=== PATIENT | male | born 1960 | race Caucasian/White ===

== ENCOUNTER 2017-08-14 20:54 | Emergency (ER) | payer OTHER ==
[2017-08-14 21:47] VITALS: BP 169/92
--- NOTE | 2017-08-14 22:09 | EDM.PDOC ---
ED HPI GENERAL MEDICAL PROBLEM - General Chief Complaint: Gastrointestinal Problem Stated Complaint: FOOD LODGED IN THROAT Time Seen by Provider: 08/14/17 22:06 Source of Information: Reports: Patient History Limitations: Reports: No Limitations - History of Present Illness INITIAL COMMENTS - FREE TEXT/NARRATIVE: pt was eating chicken tonight and it got caught in his esophagus and from 6 thirty this pm until now hje was not able to get water down. Onset: Today, Sudden Duration: Hour(s): Location: Reports: Abdomen Associated Symptoms: Reports: Weakness - Related Data Allergies Allergy/AdvReac Type Severity Reaction Status Date / Time No Known Allergies Allergy Verified 08/14/17 21:44 Home Meds: Home Meds Pravastatin [Pravachol] 20 mg PO BEDTIME 01/06/13 [History] Sildenafil [Viagra] 50 mg PO BEDTIME PRN 01/06/13 [History] Famotidine 1 tab PO BID 08/14/17 [History] Past Medical History Cardiovascular History: Reports: High Cholesterol Gastrointestinal History: Reports: Colon Polyp, Diverticulosis - Past Surgical History GI Surgical History: Reports: Appendectomy, Colonoscopy Musculoskeletal Surgical History: Reports: Arthroscopic Knee Social & Family History - Tobacco Use Smoking Status *Q: Never Smoker - Caffeine Use Caffeine Use: Reports: Tea - Alcohol Use Days Per Week of Alcohol Use: 7 Number of Drinks Per Day: 1 Total Drinks Per Week: 7 - Recreational Drug Use Recreational Drug Use: No ED ROS GENERAL - Review of Systems Review Of Systems: See Below Constitutional: Reports: No Symptoms HEENT: Reports: No Symptoms Respiratory: Reports: No Symptoms Cardiovascular: Reports: No Symptoms Endocrine: Reports: No Symptoms GI/Abdominal: Reports: Other ( food caught in his esophagus. ) : Reports: No Symptoms Musculoskeletal: Reports: No Symptoms Skin: Reports: No Symptoms Neurological: Reports: No Symptoms ED EXAM, GI/ABD - Physical Exam Exam: See Below Text/Narrative:: pt arrived feeling like he has a piece of chicken caught in his esophagus. He has not been able to get water down since 6 thirty. He was given a can of coke and he felt like he was able to get fluids down and he did not feel like it was coming back up. Exam Limited By: No Limitations General Appearance: Alert, Anxious, Moderate Distress Eyes: Bilateral: Normal Appearance, EOMI Ears: Normal TMs Nose: Normal Inspection Throat/Mouth: Normal Inspection GI/Abdominal Exam: Other ( no tenderness) Rectal (Males) Exam: Deferred Extremities: Normal Inspection Neurological: Alert, Oriented, Normal Cognition Psychiatric: Normal Affect Course - Vital Signs Last Recorded V/S: Last Vital Signs Temp 35.9 C 08/14/17 21:46 Pulse 74 08/14/17 21:46 Resp 18 08/14/17 21:46 BP 169/92 H 08/14/17 21:46 Pulse Ox 97 08/14/17 21:46 - Orders/Labs/Meds Orders: Active Orders 24 hr Category Date Time Status CBC WITH AUTO DIFF [HEME] Urgent Lab 08/14/17 21:46 Ordered COMPREHENSIVE METABOLIC PN,CMP [CHEM] Urgent Lab 08/14/17 21:46 Ordered CRP [C-REACTIVE PROTEIN] [CHEM] Stat Lab 08/14/17 21:46 Ordered UA W/MICROSCOPIC [URIN] Urgent Lab 08/14/17 21:46 Ordered - Re-Assessments/Exams Free Text/Narrative Re-Assessment/Exam: 08/14/17 22:13 pt was given a coke and the chicken went down.He hjas had several episodes in the past few days and he was advised if this persisted he should be gastroscoped. Departure - Departure Time of Disposition: 22:08 Disposition: Home, Self-Care 01 Condition: Fair Clinical Impression: Foreign body in esophagus - Discharge Information Referrals: Forest Goode MD [Primary Care Provider] - Forms: ED Department Discharge Care Plan Goals: cleared after a can of coke, rtc if problems. - My Orders Last 24 Hours: My Active Orders 08/14/17 21:46 CBC WITH AUTO DIFF [HEME] Urgent COMPREHENSIVE METABOLIC PN,CMP [CHEM] Urgent CRP [C-REACTIVE PROTEIN] [CHEM] Stat UA W/MICROSCOPIC [URIN] Urgent - Assessment/Plan Last 24 Hours: My Active Orders 08/14/17 21:46 CBC WITH AUTO DIFF [HEME] Urgent COMPREHENSIVE METABOLIC PN,CMP [CHEM] Urgent CRP [C-REACTIVE PROTEIN] [CHEM] Stat UA W/MICROSCOPIC [URIN] Urgent
== END 2017-08-14 22:17 | disposition home or self-care (01) ==
LOC: JP.ED 20:54
DX: T18.128A Food in esophagus causing other injury, initial encounter (principal); E78.00 Pure hypercholesterolemia, unspecified
CPT/HCPCS: 99285

== ENCOUNTER 2018-07-11 18:42 | Inpatient (IN) | payer OTHER ==
[2018-07-11] MEDS ORDERED: Acetaminophen 500 MG Tab PO ONE (19:08)
--- NOTE | 2018-07-11 19:14 | EDM.PDOC ---
ED HPI GENERAL MEDICAL PROBLEM - General Chief Complaint: Abdominal Pain Stated Complaint: DIVERTICULITIS Time Seen by Provider: 07/11/18 19:00 Source of Information: Reports: Patient History Limitations: Reports: No Limitations - History of Present Illness INITIAL COMMENTS - FREE TEXT/NARRATIVE: 58 yo male with a pHx of diverticulitis began with mild abdominal pain this morning that has progressed that reminds him of his previous diverticulitis. Ate some for lunch that made him worse. Late this afternoon developed a low grade fever that he did not treat. Pain is in the low abdomen just above the belt line. He developed nausea after his chicken noodle soup for lunch, does not have any now. Got slight relief with Gas X. Onset: Today Onset Date: 07/11/18 Onset Time: 09:00 Duration: Hour(s):, Getting Worse Location: Reports: Abdomen Quality: Reports: Ache Severity: Moderate Improves with: Reports: Other (passing gas, Gas X) Worsens with: Reports: Eating, Other (time) Context: Reports: Other (See HPI) Associated Symptoms: Reports: Fever/Chills, Nausea/Vomiting. 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 (see below) (Gas X) - Related Data Allergies Allergy/AdvReac Type Severity Reaction Status Date / Time No Known Allergies Allergy Verified 07/11/18 19:17 Home Meds: Home Meds Pravastatin [Pravachol] 20 mg PO BEDTIME 01/06/13 [History] Sildenafil [Viagra] 50 mg PO BEDTIME PRN 01/06/13 [History] Omeprazole 1 tab PO BEDTIME 07/11/18 [History] Past Medical History Cardiovascular History: Reports: High Cholesterol Gastrointestinal History: Reports: Colon Polyp, Diverticulosis - Past Surgical History GI Surgical History: Reports: Appendectomy, Colonoscopy Musculoskeletal Surgical History: Reports: Arthroscopic Knee Social & Family History - Caffeine Use Caffeine Use: Reports: Tea ED ROS GENERAL - Review of Systems Review Of Systems: See Below Constitutional: Reports: No Symptoms HEENT: Reports: No Symptoms Respiratory: Reports: No Symptoms Cardiovascular: Reports: No Symptoms GI/Abdominal: Reports: Abdominal Pain, Decreased Appetite, Nausea (not now), Vomiting (one small after lunch). Denies: Anorexia, Black Stool, Bloody Stool, Constipation, Diarrhea, Distension, Flatus, Hematemesis, Melena : Reports: No Symptoms Musculoskeletal: Reports: No Symptoms Skin: Reports: No Symptoms Neurological: Reports: No Symptoms ED EXAM, GI/ABD - Physical Exam Exam: See Below Exam Limited By: No Limitations General Appearance: Alert, WD/WN, No Apparent Distress Eyes: Bilateral: Normal Appearance Ears: Normal External Exam, Normal Canal, Hearing Grossly Normal Nose: Normal Inspection, No Blood Throat/Mouth: Normal Inspection, Normal Lips, Normal Oropharynx, Normal Voice, No Airway Compromise Head: Atraumatic, Normocephalic Neck: Normal Inspection Respiratory/Chest: No Respiratory Distress, Lungs Clear, Normal Breath Sounds, No Accessory Muscle Use Cardiovascular: Regular Rate, Rhythm, No Edema GI/Abdominal Exam: Normal Bowel Sounds, Soft, No Distention, Tender (more so in the LLQ). No: Non-Tender, No Mass, Distended, Guarding, Rigid, Rebound, Hernia Back Exam: Normal Inspection. No: CVA Tenderness (R), CVA Tenderness (L) Extremities: Normal Inspection, Normal Range of Motion, Non-Tender, No Pedal Edema Neurological: Alert, Oriented, CN II-XII Intact, Normal Cognition, No Motor/ Sensory Deficits Psychiatric: Normal Affect, Normal Mood Skin Exam: Warm, Dry, Intact, Normal Color, No Rash Course - Vital Signs Text/Narrative:: Dr. Johnson called @ Last Recorded V/S: Last Vital Signs Temp 37.9 C 07/11/18 19:24 Pulse 110 H 07/11/18 19:24 Resp 16 07/11/18 19:24 BP 150/89 H 07/11/18 19:24 Pulse Ox 92 L 07/11/18 19:24 - Orders/Labs/Meds Orders: Active Orders 24 hr Category Date Time Status Ciprofloxacin in D5W [Cipro in D5W 400 MG/200 ML] 400 Med 07/11/18 21:18 Active mg Premix Bag 1 bag IV ONETIME Lactated Ringers [Ringers, Lactated] 1,000 ml Med 07/11/18 19:15 Active IV ASDIRECTED metroNIDAZOLE/Normal Saline [Flagyl 500 MG in NS 100 ML Med 07/11/18 21:18 Active ] 500 mg Premix Bag 1 bag IV ONETIME Medication Orders Lactated Ringer's (Ringers, Lactated) 1,000 mls @ 500 mls/hr IV ASDIRECTED KRISTIN Last Admin: 07/11/18 20:49 Dose: 500 mls/hr Ciprofloxacin/Dextrose 400 mg/ (Premix) 200 mls @ 200 mls/hr IV ONETIME ONE Stop: 07/11/18 22:17 Metronidazole 500 mg/ Premix 100 mls @ 100 mls/hr IV ONETIME ONE Stop: 07/11/18 22:17 Labs: Laboratory Tests 07/11/18 07/11/18 07/11/18 Range/Units 19:07 19:18 19:18 WBC 15.9 H (4.5-11.0) K/uL RBC 4.63 (4.30-5.90) M/uL Hgb 13.7 (12.0-15.0) g/dL Hct 40.1 (40.0-54.0) % MCV 87 (80-98) fL MCH 30 (27-31) pg MCHC 34 (32-36) % Plt Count 273 (150-400) K/uL Sodium 134 L (140-148) mmol/L Potassium 4.0 (3.6-5.2) mmol/L Chloride 98 L (100-108) mmol/L Carbon Dioxide 24 (21-32) mmol/L Anion Gap 16.0 H (5.0-14.0) mmol/L BUN 11 (7-18) mg/dL Creatinine 1.1 (0.8-1.3) mg/dL Est Cr Clr Drug Dosing 65.61 mL/min Estimated GFR (MDRD) > 60 (>60) Glucose 143 H (74-106) mg/dL Calcium 9.1 D (8.5-10.1) mg/dL C-Reactive Protein (0.0-0.3) mg/dL Urine Color Yellow Urine Appearance Clear Urine pH 6.0 (4.5-8.0) Ur Specific [place] 1.010 (1.008-1.030) Urine Protein Negative (NEGATIVE) mg/dL Urine Glucose (UA) Normal (NEGATIVE) mg/dL Urine Ketones Negative (NEGATIVE) mg/dL Urine Occult Blood Negative (NEGATIVE) Urine Nitrite Negative (NEGAITVE) Urine Bilirubin Negative (NEGATIVE) Urine Urobilinogen Normal (NORMAL) mg/dL Ur Leukocyte Esterase Negative (NEGATIVE) Urine RBC Not seen (0-5) Urine WBC Not seen (0-5) Ur Epithelial Cells Not seen Amorphous Sediment Not seen Urine Bacteria Not seen Urine Mucus Not seen 07/11/18 Range/Units 19:18 WBC (4.5-11.0) K/uL RBC (4.30-5.90) M/uL Hgb (12.0-15.0) g/dL Hct (40.0-54.0) % MCV (80-98) fL MCH (27-31) pg MCHC (32-36) % Plt Count (150-400) K/uL Sodium (140-148) mmol/L Potassium (3.6-5.2) mmol/L Chloride (100-108) mmol/L Carbon Dioxide (21-32) mmol/L Anion Gap (5.0-14.0) mmol/L BUN (7-18) mg/dL Creatinine (0.8-1.3) mg/dL Est Cr Clr Drug Dosing mL/min Estimated GFR (MDRD) (>60) Glucose (74-106) mg/dL Calcium (8.5-10.1) mg/dL C-Reactive Protein 4.21 H (0.0-0.3) mg/dL Urine Color Urine Appearance Urine pH (4.5-8.0) Ur Specific [place] (1.008-1.030) Urine Protein (NEGATIVE) mg/dL Urine Glucose (UA) (NEGATIVE) mg/dL Urine Ketones (NEGATIVE) mg/dL Urine Occult Blood (NEGATIVE) Urine Nitrite (NEGAITVE) Urine Bilirubin (NEGATIVE) Urine Urobilinogen (NORMAL) mg/dL Ur Leukocyte Esterase (NEGATIVE) Urine RBC (0-5) Urine WBC (0-5) Ur Epithelial Cells Amorphous Sediment Urine Bacteria Urine Mucus Meds: Medications Generic Name Dose Route Start Last Admin Trade Name Freq PRN Reason Stop Dose Admin Lactated Ringer's 1,000 mls @ 500 mls/hr 07/11/18 19:15 07/11/18 20:49 Ringers, Lactated IV 500 mls/hr ASDIRECTED KRISTIN Administration Ciprofloxacin/Dextrose 400 mg/ 200 mls @ 200 mls/hr 07/11/18 21:18 Premix IV 07/11/18 22:17 ONETIME ONE Metronidazole 500 mg/ Premix 100 mls @ 100 mls/hr 07/11/18 21:18 IV 07/11/18 22:17 ONETIME ONE Discontinued Medications Generic Name Dose Route Start Last Admin Trade Name Vasile PRN Reason Stop Dose Admin Acetaminophen 1,000 mg 07/11/18 19:08 07/11/18 20:45 Tylenol Extra Strength PO 07/11/18 19:09 1,000 mg ONETIME ONE Administration Sodium Chloride 100 mls @ 3 mls/sec 07/11/18 20:13 07/11/18 20:30 Normal Saline IV 07/11/18 20:14 3 mls/sec ONETIME ONE Administration Iopamidol 150 ml 07/11/18 20:15 07/11/18 20:31 Isovue-300 (61%) IV 150 ml . DIRECTED KRISTIN Administration - Radiology Interpretation Free Text/Narrative:: CT abdom/pelvis with IV contrast-acute sigmoid diverticulitis with ? early abscess formation CT Results Date: 07/11/18 CT Results Time: 21:15 Departure - Departure Time of Disposition: 21:45 Disposition: Admitted As Inpatient 64 Condition: Fair Clinical Impression: Acute diverticulitis - Discharge Information *PRESCRIPTION DRUG MONITORING PROGRAM REVIEWED*: No *COPY OF PRESCRIPTION DRUG MONITORING REPORT IN PATIENT ERICKA: No Referrals: Forest Goode MD [Primary Care Provider] - Forms: ED Department Discharge - My Orders Last 24 Hours: My Active Orders 07/11/18 19:15 Lactated Ringers [Ringers, Lactated] 1,000 ml IV ASDIRECTED 07/11/18 21:18 Ciprofloxacin in D5W [Cipro in D5W 400 MG/200 ML] 400 mg Premix Bag 1 bag IV ONETIME metroNIDAZOLE/Normal Saline [Flagyl 500 MG in NS 100 ML] 500 mg Premix Bag 1 bag IV ONETIME - Assessment/Plan Last 24 Hours: My Active Orders 07/11/18 19:15 Lactated Ringers [Ringers, Lactated] 1,000 ml IV ASDIRECTED 07/11/18 21:18 Ciprofloxacin in D5W [Cipro in D5W 400 MG/200 ML] 400 mg Premix Bag 1 bag IV ONETIME metroNIDAZOLE/Normal Saline [Flagyl 500 MG in NS 100 ML] 500 mg Premix Bag 1 bag IV ONETIME
[2018-07-11] MEDS ORDERED: Lactated Ringers 1,000 ML IV SCH (19:15)
[2018-07-11] MEDS ORDERED: Sodium Chloride 0.9% 100 ML IV ONE (20:13)
[2018-07-11] MEDS ORDERED: Iopamidol 612 MG/ML 150 ML Bottle IV SCH (20:15)
--- NOTE | 2018-07-11 21:12 | CRLCT ---
INDICATION: Abdominal pain TECHNIQUE: CT abdomen and pelvis acquired with 150 cc Isovue 300 IV contrast. COMPARISON: None FINDINGS: Lower chest: Small hiatal hernia. Liver: Unremarkable. Spleen: Unremarkable. Pancreas: Unremarkable. Gallbladder and bile ducts: Unremarkable. Adrenal glands: Unremarkable. Kidneys: Simple cyst superior pole left kidney. GI tract: Sigmoid diverticulosis. Short segment of colonic wall thickening in the proximal sigmoid colon with pericolonic fat stranding. No extraluminal air. There is a 2.0 x 1.4 cm focal fluid collection along the inferior wall of the sigmoid colon, best seen on image 45 series 3. Vascular structures: Unremarkable. Lymph nodes: Unremarkable. Pelvic Organs: Mild enhancement of the left lateral wall of the urinary bladder, likely reactive. Bones: Grade 1 anterolisthesis of L5 on S1 secondary to bilateral L5 pars defects. Osseous structures are otherwise unremarkable for age. IMPRESSION: Acute sigmoid diverticulitis. Small fluid collection may represent early abscess formation. Small hiatal hernia. Please note that all CT scans at this facility use dose modulation, iterative reconstruction, and/or weight-based dosing when appropriate to reduce radiation dose to as low as reasonably achievable. Dictated by Carmen Looney MD @ Jul 11 2018 8:50PM Signed by Dr. Carmen Looney @ Jul 11 2018 9:11PM
[2018-07-11] MEDS ORDERED: Ciprofloxacin in D5W 400 MG in Premix Bag 1 BAG IV ONE ×2 (21:18)
[2018-07-11] MEDS ORDERED: metroNIDAZOLE/Normal Saline 500 MG in Premix Bag 1 BAG IV ONE (21:18)
--- NOTE | 2018-07-11 21:48 | PCM.HP ---
H&P History of Present Illness - General Date of Service: 07/11/18 Admit Problem/Dx: Admission Diagnosis/Problem Admission Diagnosis/Problem Diverticulitis Source of Information: Patient, Family, Old Records, Provider, RN Notes Reviewed History Limitations: Reports: No Limitations - History of Present Illness Initial Comments - Free Text/Narative: Mr. Long is a 58-year-old gentleman who was admitted through the emergency department with left lower quadrant abdominal pain, chills, nausea and vomiting , secondary to complicated diverticulitis with abscess formation. He has a known history of diverticulosis and one previous episode of diverticulitis occurring in 2012. He felt well until early this morning when he awoke with left lower quadrant abdominal pain. Pain persisted throughout the day, worse with movement. He denies any radiation of the pain and describes it as a moderate ache. The evening he had some chicken noodle soup and after about an hour experience nausea and vomiting. He presented to the emergency department for further evaluation. White blood cell count is elevated and he was found to have left lower quadrant tenderness on examination. CT scan of the abdomen shows evidence of diverticulitis with probable abscess formation 2.01.4 cm in size. He is been started on IV antibiotic therapy with ciprofloxacin and metronidazole in the emergency department. - Related Data Allergies/Adverse Reactions: Allergies Allergy/AdvReac Type Severity Reaction Status Date / Time No Known Allergies Allergy Verified 07/11/18 19:17 Home Medications: Home Meds Pravastatin [Pravachol] 20 mg PO BEDTIME 01/06/13 [History] Sildenafil [Viagra] 50 mg PO BEDTIME PRN 01/06/13 [History] Fish Oil/Brick-3 Fatty Acids [Fish Oil 1,000 MG] 1 each PO BID 07/11/18 [History ] Omeprazole 1 tab PO BEDTIME 07/11/18 [History] Past Medical History Cardiovascular History: Reports: High Cholesterol Gastrointestinal History: Reports: Colon Polyp, Diverticulosis - Past Surgical History GI Surgical History: Reports: Appendectomy, Colonoscopy Musculoskeletal Surgical History: Reports: Arthroscopic Knee Social & Family History - Tobacco Use Smoking Status *Q: Never Smoker - Caffeine Use Caffeine Use: Reports: Tea H&P Review of Systems - Review of Systems: Review Of Systems: See Below General: Reports: Chills, Weakness, Fatigue, Decreased Appetite. Denies: Fever HEENT: Reports: No Symptoms Pulmonary: Reports: No Symptoms Cardiovascular: Reports: No Symptoms Gastrointestinal: Reports: Abdominal Pain, Decreased Appetite, Distension, Nausea, Vomiting. Denies: Constipation, Diarrhea, Difficulty Swallowing, Hematemesis, Hematochezia, Melena Genitourinary: Reports: No Symptoms Musculoskeletal: Reports: No Symptoms Skin: Reports: No Symptoms Psychiatric: Reports: No Symptoms Neurological: Reports: No Symptoms Hematologic/Lymphatic: Reports: No Symptoms Immunologic: Reports: No Symptoms Exam - Exam Exam: See Below - Vital Signs Vital Signs: Last Vital Signs Temp 100.2 F 07/11/18 19:24 Pulse 110 H 07/11/18 19:24 Resp 16 07/11/18 19:24 BP 150/89 H 07/11/18 19:24 Pulse Ox 92 L 07/11/18 19:24 Weight: 215 lb 9.793 oz - Exam Quality Assessment: Supplemental Oxygen, DVT Prophylaxis General: Alert, Oriented, Cooperative, Moderate Distress HEENT: Conjunctiva Clear, Hearing Intact, Mucosa Moist & [place], Normal Nasal Septum, Posterior Pharynx Clear, Pupils Equal Neck: Supple, Trachea Midline, +2 Carotid Pulse wo Bruit Lungs: Clear to Auscultation, Normal Respiratory Effort Cardiovascular: Regular Rate, Regular Rhythm, Normal S1, Normal S2. No: Systolic Murmur, Diastolic Murmur GI/Abdominal Exam: Soft, No Organomegaly, Distended, Guarding, Rebound, Tender. No: Rigid Back Exam: Normal Inspection, Full Range of Motion Extremities: Non-Tender, No Pedal Edema Skin: Warm, Dry, Intact Neurological: Cranial Nerves Intact, Strength Equal Bilateral, Normal Speech, Normal Tone, Sensation Intact. No: Focal Deficit Neuro Extensive - Mental Status: Alert, Oriented x3, Normal Mood/Affect, Normal Cognition, Memory Intact - Patient Data Lab Results Last 24 hrs: Laboratory Results - last 24 hr 07/11/18 07/11/18 07/11/18 Range/Units 19:07 19:18 19:18 WBC 15.9 H (4.5-11.0) K/uL RBC 4.63 (4.30-5.90) M/uL Hgb 13.7 (12.0-15.0) g/dL Hct 40.1 (40.0-54.0) % MCV 87 (80-98) fL MCH 30 (27-31) pg MCHC 34 (32-36) % Plt Count 273 (150-400) K/uL Sodium 134 L (140-148) mmol/L Potassium 4.0 (3.6-5.2) mmol/L Chloride 98 L (100-108) mmol/L Carbon Dioxide 24 (21-32) mmol/L Anion Gap 16.0 H (5.0-14.0) mmol/L BUN 11 (7-18) mg/dL Creatinine 1.1 (0.8-1.3) mg/dL Est Cr Clr Drug Dosing 65.61 mL/min Estimated GFR (MDRD) > 60 (>60) Glucose 143 H (74-106) mg/dL Calcium 9.1 D (8.5-10.1) mg/dL C-Reactive Protein (0.0-0.3) mg/dL Urine Color Yellow Urine Appearance Clear Urine pH 6.0 (4.5-8.0) Ur Specific [place] 1.010 (1.008-1.030) Urine Protein Negative (NEGATIVE) mg/dL Urine Glucose (UA) Normal (NEGATIVE) mg/dL Urine Ketones Negative (NEGATIVE) mg/dL Urine Occult Blood Negative (NEGATIVE) Urine Nitrite Negative (NEGAITVE) Urine Bilirubin Negative (NEGATIVE) Urine Urobilinogen Normal (NORMAL) mg/dL Ur Leukocyte Esterase Negative (NEGATIVE) Urine RBC Not seen (0-5) Urine WBC Not seen (0-5) Ur Epithelial Cells Not seen Amorphous Sediment Not seen Urine Bacteria Not seen Urine Mucus Not seen 07/11/18 Range/Units 19:18 WBC (4.5-11.0) K/uL RBC (4.30-5.90) M/uL Hgb (12.0-15.0) g/dL Hct (40.0-54.0) % MCV (80-98) fL MCH (27-31) pg MCHC (32-36) % Plt Count (150-400) K/uL Sodium (140-148) mmol/L Potassium (3.6-5.2) mmol/L Chloride (100-108) mmol/L Carbon Dioxide (21-32) mmol/L Anion Gap (5.0-14.0) mmol/L BUN (7-18) mg/dL Creatinine (0.8-1.3) mg/dL Est Cr Clr Drug Dosing mL/min Estimated GFR (MDRD) (>60) Glucose (74-106) mg/dL Calcium (8.5-10.1) mg/dL C-Reactive Protein 4.21 H (0.0-0.3) mg/dL Urine Color Urine Appearance Urine pH (4.5-8.0) Ur Specific [place] (1.008-1.030) Urine Protein (NEGATIVE) mg/dL Urine Glucose (UA) (NEGATIVE) mg/dL Urine Ketones (NEGATIVE) mg/dL Urine Occult Blood (NEGATIVE) Urine Nitrite (NEGAITVE) Urine Bilirubin (NEGATIVE) Urine Urobilinogen (NORMAL) mg/dL Ur Leukocyte Esterase (NEGATIVE) Urine RBC (0-5) Urine WBC (0-5) Ur Epithelial Cells Amorphous Sediment Urine Bacteria Urine Mucus Result Diagrams: 07/11/18 19:18 07/11/18 19:18 *Q Meaningful Use (ADM) - VTE *Q VTE Pharmacological Contraindications *Q: Patient Scheduled Surgery - VTE Risk Assess *Q Each Risk Factor Represents 1 Point: Obesity ( BMI > 25 kg/m2) Total Score 1 Point Risk Factors: 1 Each Risk Factor Represents 2 Points: Age 60 - 74 Years Total Score 2 Point Risk Factors: 2 Each Risk Factor Represents 3 Points: None Total Score 3 Point Risk Factors: 0 Each Risk Factor Represents 5 Points: None Total Score 5 Point Risk Factors: 0 Venous Thromboembolism Risk Factor Score *Q: 3 Problem List Initiated/Reviewed/Updated: Yes Orders Last 24hrs: Active Orders 24 hr Category Date Time Status Patient Status Manage Transfer [TRANSFER] Routine ADT 07/11/18 21:33 Active Ciprofloxacin in D5W [Cipro in D5W 400 MG/200 ML] 400 Med 07/11/18 21:18 Active mg Premix Bag 1 bag IV ONETIME Lactated Ringers [Ringers, Lactated] 1,000 ml Med 07/11/18 19:15 Active IV ASDIRECTED metroNIDAZOLE/Normal Saline [Flagyl 500 MG in NS 100 ML Med 07/11/18 21:18 Active ] 500 mg Premix Bag 1 bag IV ONETIME Resuscitation Status Routine Resus Stat 07/11/18 21:38 Ordered Medication Orders Lactated Ringer's (Ringers, Lactated) 1,000 mls @ 500 mls/hr IV ASDIRECTED KRISTIN Last Admin: 07/11/18 20:49 Dose: 500 mls/hr Ciprofloxacin/Dextrose 400 mg/ (Premix) 200 mls @ 200 mls/hr IV ONETIME ONE Stop: 07/11/18 22:17 Last Admin: 07/11/18 21:45 Dose: 200 mls/hr Metronidazole 500 mg/ Premix 100 mls @ 100 mls/hr IV ONETIME ONE Stop: 07/11/18 22:17 Last Admin: 07/11/18 21:45 Dose: 100 mls/hr Assessment/Plan Comment:: ASSESSMENT AND PLAN COMPLICATED DIVERTICULITIS WITH ABSCESS-known history of diverticulosis, this is his second episode of diverticulitis. White blood cell count elevated and CT scan shows evidence of diverticulitis with abscess formation. He is otherwise fairly healthy no history of significant cardiac or pulmonary disease. Cleared for surgery if indicated with general anesthetic. -Nothing by mouth -IV fluids for hydration -Pain and nausea medication as needed -IV ciprofloxacin and metronidazole -Consult Dr. Arthur for surgical opinion in a.m. MAINTENANCE ISSUES -DVT prophylaxis; SCUDS -GI prophylaxis; Protonix 40 mg IV daily -Mares catheter; not indicated -Nutrition; nothing by mouth -Nicotine dependence; not required CODE STATUS-FULL CODE ADMISSION STATUS-patient will be admitted to inpatient status, expect at least a 2 night hospital stay for evaluation and management of problems as outlined above. At the time of this admission I do not reasonably expected evaluation and management of this problem will require more than a 96 hour hospital stay. DISPOSITION-anticipate discharge to home after the hospital stay. PRIMARY CARE PROVIDER-Dr. Forest Goode
[2018-07-11] MEDS ORDERED: Sodium Chloride 0.9% 10 ML Syringe FLUSH PRN (22:07)
[2018-07-11] MEDS ORDERED: metroNIDAZOLE/Normal Saline 500 MG in Premix Bag 1 BAG IV SCH (22:07)
[2018-07-11] MEDS ORDERED: Pantoprazole 40 MG Vial IVPUSH SCH (22:07)
[2018-07-11] MEDS ORDERED: HYDROmorphone 0.5 MG/0.5 ML Syringe IVPUSH PRN (22:07)
[2018-07-11] MEDS: Ciprofloxacin in D5W 400 MG in Premix Bag 1 BAG IV SCH ×4 (22:19→22:20)
[2018-07-11] MEDS: Lactated Ringers 1,000 ML IV SCH (22:46)
[2018-07-12] MEDS: Acetaminophen 325 MG Tab PO PRN ×2 (00:30→05:05)
[2018-07-12] MEDS: metroNIDAZOLE/Normal Saline 500 MG in Premix Bag 1 BAG IV SCH ×3 (05:07→22:30)
[2018-07-12] MEDS: Lactated Ringers 1,000 ML IV SCH (05:10)
[2018-07-12] MEDS ORDERED: Ketamine 500 MG/5 ML MDV IV SCH ×3 (07:30→12:00)
--- NOTE | 2018-07-12 08:36 | PN ---
DATE OF SERVICE: 07/12/2018 SUBJECTIVE: Mike has acute diverticulitis. His CT scan shows sigmoid diverticulosis with short segment of colonic wall thickening in the proximal sigmoid colon. There is a 2.0 x 1.4 cm focal fluid collection along the inferior wall of the sigmoid colon. He is n.p.o. and will be scheduled for surgery today. Reports temperature max over the past 24 hours was 99.6. Vital signs otherwise have been stable. He reports pain between on a pain scale of 1- 10 between 4-6. He is taking oral Tylenol and he received 3 doses during the night. REVIEW OF SYSTEMS: Remainder of review of systems negative for any pertinent positives and negatives. OBJECTIVE: GENERAL: Mike Long is a 58-year-old male. VITAL SIGNS: TPR is 98.7, 70, 18, blood pressure is 136/77. HEENT: Negative. NECK: Supple. HEART: Regular rate and rhythm. LUNGS: Clear. ABDOMEN: Slight distention. There is generalized tenderness with increased tenderness in the right lower quadrant. EXTREMITIES: Without peripheral edema. NEUROLOGIC: Intact. SKIN: Without rash. PSYCHIATRIC: Mood and affect appropriate. ASSESSMENT: Diverticulitis, pericolonic abscess. PLAN: Schedule and have consent signed for open laparotomy with sigmoid resection and drainage of pericolonic abscess. Case to follow. General anesthesia, TAP block, ketamine bolus and intraoperative ketamine. N.p.o. Surgeon, Mike Arthur MD. After preoperative evaluation and discussion of possible risks and possible complications by Mike Arthur MD, the patient wishes to proceed with surgical procedure. Ema Mac PA-C /[id number]
[2018-07-12] MEDS ORDERED: fentaNYL 250 MCG/5 ML SDV ONE (08:44)
[2018-07-12] MEDS ORDERED: Propofol 200 MG/20 ML SDV ONE (08:45)
[2018-07-12] MEDS ORDERED: Neostigmine Methylsulfate 1 MG/ML 5 ML Syringe ONE (08:45)
[2018-07-12] MEDS ORDERED: Rocuronium 50 MG/5 ML Vial ONE ×2 (08:45→13:02)
[2018-07-12] MEDS ORDERED: Succinylcholine 200 MG/10 ML MDV ONE (08:45)
[2018-07-12] MEDS ORDERED: Glycopyrrolate 0.2 MG/ML 5 ML MDV ONE (08:45)
[2018-07-12] MEDS ORDERED: Ondansetron 4 MG/2 ML SDV ONE (08:45)
[2018-07-12] MEDS ORDERED: Dexamethasone 4 MG/ML SDV ONE (08:45)
[2018-07-12] MEDS: Ciprofloxacin in D5W 400 MG in Premix Bag 1 BAG IV SCH ×4 (09:13→21:28)
[2018-07-12] MEDS ORDERED: Meropenem 500 MG SDV ONE ×2 (10:41→13:02)
--- NOTE | 2018-07-12 10:41 | PCM.PN ---
- General Info Date of Service: 07/12/18 Subjective Update: No acute events overnight following admission. Pain is better today but not resolved. Did have some low-grade fevers overnight. Surgery is planned later this morning. Functional Status: Reports: Pain Controlled - Review of Systems Gastrointestinal: Reports: Abdominal Pain - Patient Data Vitals - Most Recent: Last Vital Signs Temp 37.1 C 07/12/18 07:33 Pulse 70 07/12/18 07:33 Resp 18 07/12/18 07:33 BP 136/77 07/12/18 07:33 Pulse Ox 93 L 07/12/18 07:33 Weight - Most Recent: 96.729 kg I&O - Last 24 Hours: Intake & Output 07/11/18 07/12/18 07/12/18 22:59 06:59 14:59 Intake Total 1226 Output Total 950 Balance -950 1226 Lab Results Last 24 Hours: Laboratory Results - last 24 hr 07/11/18 07/11/18 07/11/18 Range/Units 19:07 19:18 19:18 WBC 15.9 H (4.5-11.0) K/uL RBC 4.63 (4.30-5.90) M/uL Hgb 13.7 (12.0-15.0) g/dL Hct 40.1 (40.0-54.0) % MCV 87 (80-98) fL MCH 30 (27-31) pg MCHC 34 (32-36) % Plt Count 273 (150-400) K/uL Neut % (Auto) (36-66) % Lymph % (Auto) (24-44) % Tucker % (Auto) (2-6) % Eos % (Auto) (2-4) % Baso % (Auto) (0-1) % Sodium 134 L (140-148) mmol/L Potassium 4.0 (3.6-5.2) mmol/L Chloride 98 L (100-108) mmol/L Carbon Dioxide 24 (21-32) mmol/L Anion Gap 16.0 H (5.0-14.0) mmol/L BUN 11 (7-18) mg/dL Creatinine 1.1 (0.8-1.3) mg/dL Est Cr Clr Drug Dosing 65.61 mL/min Estimated GFR (MDRD) > 60 (>60) Glucose 143 H (74-106) mg/dL Calcium 9.1 D (8.5-10.1) mg/dL Magnesium (1.8-2.4) mg/dL C-Reactive Protein (0.0-0.3) mg/dL Urine Color Yellow Urine Appearance Clear Urine pH 6.0 (4.5-8.0) Ur Specific [place] 1.010 (1.008-1.030) Urine Protein Negative (NEGATIVE) mg/dL Urine Glucose (UA) Normal (NEGATIVE) mg/dL Urine Ketones Negative (NEGATIVE) mg/dL Urine Occult Blood Negative (NEGATIVE) Urine Nitrite Negative (NEGAITVE) Urine Bilirubin Negative (NEGATIVE) Urine Urobilinogen Normal (NORMAL) mg/dL Ur Leukocyte Esterase Negative (NEGATIVE) Urine RBC Not seen (0-5) Urine WBC Not seen (0-5) Ur Epithelial Cells Not seen Amorphous Sediment Not seen Urine Bacteria Not seen Urine Mucus Not seen 07/11/18 07/12/18 07/12/18 Range/Units 19:18 05:45 05:45 WBC 11.0 (4.5-11.0) K/uL RBC 4.12 L (4.30-5.90) M/uL Hgb 12.4 (12.0-15.0) g/dL Hct 36.4 L (40.0-54.0) % MCV 88 (80-98) fL MCH 30 (27-31) pg MCHC 34 (32-36) % Plt Count 252 (150-400) K/uL Neut % (Auto) 77 H (36-66) % Lymph % (Auto) 13 L (24-44) % Tucker % (Auto) 10 H (2-6) % Eos % (Auto) 1 L (2-4) % Baso % (Auto) 0 (0-1) % Sodium 137 L (140-148) mmol/L Potassium 4.1 (3.6-5.2) mmol/L Chloride 101 (100-108) mmol/L Carbon Dioxide 29 (21-32) mmol/L Anion Gap 11.1 (5.0-14.0) mmol/L BUN 10 (7-18) mg/dL Creatinine 1.1 (0.8-1.3) mg/dL Est Cr Clr Drug Dosing 65.61 mL/min Estimated GFR (MDRD) > 60 (>60) Glucose 135 H (74-106) mg/dL Calcium 8.9 (8.5-10.1) mg/dL Magnesium 1.7 L (1.8-2.4) mg/dL C-Reactive Protein 4.21 H (0.0-0.3) mg/dL Urine Color Urine Appearance Urine pH (4.5-8.0) Ur Specific [place] (1.008-1.030) Urine Protein (NEGATIVE) mg/dL Urine Glucose (UA) (NEGATIVE) mg/dL Urine Ketones (NEGATIVE) mg/dL Urine Occult Blood (NEGATIVE) Urine Nitrite (NEGAITVE) Urine Bilirubin (NEGATIVE) Urine Urobilinogen (NORMAL) mg/dL Ur Leukocyte Esterase (NEGATIVE) Urine RBC (0-5) Urine WBC (0-5) Ur Epithelial Cells Amorphous Sediment Urine Bacteria Urine Mucus Med Orders - Current: Current Medications Acetaminophen (Tylenol) 650 mg PO Q4H PRN PRN Reason: Pain (Mild 1-3)/fever Last Admin: 07/12/18 05:05 Dose: 650 mg Ropivacaine 48 ml/Dexamethasone 8 mg/Epinephrine HCl 0.4 mg/ Sodium Chloride 29.6 ml 0 ml NERVRT ASDIRECTED [facility] Hydromorphone HCl (Dilaudid) 0.5 mg IVPUSH Q2H PRN PRN Reason: Pain Lactated Ringer's (Ringers, Lactated) 1,000 mls @ 125 mls/hr IV ASDIRECTED [facility] Last Admin: 07/12/18 05:10 Dose: 125 mls/hr Ciprofloxacin/Dextrose 400 mg/ (Premix) 200 mls @ 200 mls/hr IV Q12H [facility] Last Admin: 07/12/18 09:13 Dose: 200 mls/hr Metronidazole 500 mg/ Premix 100 mls @ 100 mls/hr IV Q8H [facility] Last Admin: 07/12/18 05:07 Dose: 100 mls/hr Ketamine HCl 50 mg/ Sodium (Chloride) 50 mls @ 19.5 mls/hr IV ASDIRECTED [facility] Ketamine HCl (Ketalar) 32 mg IV ASDIRECTED [facility] Ondansetron HCl (Zofran) 4 mg IV Q4H PRN PRN Reason: Nausea/Vomiting Pantoprazole Sodium (Protonix Iv) 40 mg IVPUSH Q24H [facility] Sodium Chloride (Saline Flush) 10 ml FLUSH ASDIRECTED PRN PRN Reason: Keep Vein Open Discontinued Medications Acetaminophen (Tylenol Extra Strength) 1,000 mg PO ONETIME ONE Stop: 07/11/18 19:09 Last Admin: 07/11/18 20:45 Dose: 1,000 mg Dexamethasone (Dexamethasone) Confirm Administered Dose 4 mg .ROUTE .STK-MED ONE Stop: 07/12/18 08:46 Fentanyl (Sublimaze) Confirm Administered Dose 250 mcg .ROUTE .STK-MED ONE Stop: 07/12/18 08:45 Glycopyrrolate (Robinul) Confirm Administered Dose 1 mg .ROUTE .STK-MED ONE Stop: 07/12/18 08:46 Lactated Ringer's (Ringers, Lactated) 1,000 mls @ 500 mls/hr IV ASDIRECTED [facility] Last Admin: 07/11/18 20:49 Dose: 500 mls/hr Sodium Chloride (Normal Saline) 100 mls @ 3 mls/sec IV ONETIME ONE Stop: 07/11/18 20:14 Last Admin: 07/11/18 20:30 Dose: 3 mls/sec Ciprofloxacin/Dextrose 400 mg/ (Premix) 200 mls @ 200 mls/hr IV ONETIME ONE Stop: 07/11/18 22:17 Last Admin: 07/11/18 21:45 Dose: 200 mls/hr Metronidazole 500 mg/ Premix 100 mls @ 100 mls/hr IV ONETIME ONE Stop: 07/11/18 22:17 Last Admin: 07/11/18 21:45 Dose: 100 mls/hr Ciprofloxacin/Dextrose 400 mg/ (Premix) 200 mls @ 200 mls/hr IV Q12H [facility] Last Admin: 07/11/18 22:20 Dose: Not Given Metronidazole 500 mg/ Premix 100 mls @ 100 mls/hr IV Q8H [facility] Last Admin: 07/11/18 22:20 Dose: Not Given Iopamidol (Isovue-300 (61%)) 150 ml IV . DIRECTED [facility] Last Admin: 07/11/18 20:31 Dose: 150 ml Neostigmine Methylsulfate (Neostigmine) Confirm Administered Dose 5 mg .ROUTE .STK-MED ONE Stop: 07/12/18 08:46 Ondansetron HCl (Zofran) Confirm Administered Dose 4 mg .ROUTE .STK-MED ONE Stop: 07/12/18 08:46 Pantoprazole Sodium (Protonix Iv) 40 mg IVPUSH Q24H [facility] Last Admin: 07/11/18 22:52 Dose: 40 mg Propofol (Diprivan 20 Ml) Confirm Administered Dose 200 mg .ROUTE .STK-MED ONE Stop: 07/12/18 08:46 Rocuronium [place] (Zemuron) Confirm Administered Dose 50 mg .ROUTE .STK-MED ONE Stop: 07/12/18 08:46 Succinylcholine Chloride (Quelicin) Confirm Administered Dose 200 mg .ROUTE .STK -MED ONE Stop: 07/12/18 08:46 - Exam Quality Assessment: No: Supplemental Oxygen General: Alert, Oriented, Cooperative, No Acute Distress Lungs: Normal Respiratory Effort GI/Abdominal Exam: Soft, No Distention Extremities: No Pedal Edema Skin: Warm, Dry Psy/Mental Status: Alert, Normal Affect - Problem List Review Problem List Initiated/Reviewed/Updated: Yes - Plan Plan:: ASSESSMENT AND PLAN COMPLICATED DIVERTICULITIS WITH ABSCESS - surgical intervention planned later this morning. Tolerating current antibiotics. Pain control acceptable at this time. -Nothing by mouth -IV fluids for hydration -Pain and nausea medication as needed -IV ciprofloxacin and metronidazole -Consult Dr. Arthur, surgical intervention planned today MAINTENANCE ISSUES -DVT prophylaxis; SCUDS -GI prophylaxis; Protonix 40 mg IV daily -Mares catheter; not indicated -Nutrition; nothing by mouth DISPOSITION - anticipate discharge to home after the hospital stay. Vincent Kowalski M.D.
[2018-07-12] MEDS ORDERED: Naloxone 0.4 MG/ML SDV IVPUSH PRN (11:49)
[2018-07-12] MEDS ORDERED: Ketamine 50 MG in Sodium Chloride 0.9% 49.5 ML IV SCH (12:00)
[2018-07-12] MEDS ORDERED: Sodium Chloride 0.9% 10 ML ONE (12:15)
[2018-07-12] MEDS ORDERED: Lactated Ringers 1,000 ML ONE (12:16)
[2018-07-12] MEDS ORDERED: Scopolamine 1.5 MG Transdermal Patch ONE (12:16)
[2018-07-12] MEDS ORDERED: Ampicillin/Sulbactam Na 3 GM in Sodium Chloride 0.9% 100 ML IV ONE (14:00)
[2018-07-12] MEDS ORDERED: Scopolamine 1.5 MG Transdermal Patch TOP ONE (14:30)
[2018-07-12] MEDS ORDERED: Naloxone 0.4 MG/ML SDV IV PRN (15:21)
[2018-07-12] MEDS ORDERED: diphenhydrAMINE 50 MG/ML SDV IVPUSH PRN (15:21)
[2018-07-12] MEDS ORDERED: hydrOXYzine HCl 100 MG/2 ML SDV IM PRN (15:37)
[2018-07-12] MEDS ORDERED: VERIFY SCOP PATCH TOP SCH (16:00)
[2018-07-12] MEDS: diphenhydrAMINE 50 MG/ML SDV IVPUSH PRN (16:09)
[2018-07-12] MEDS: Dextrose 5%-Lactated Ringers 1,000 ML IV SCH (16:09)
[2018-07-12] MEDS: fentaNYL 2,500 MCG in Sodium Chloride 0.9% 200 ML EPIDUR SCH (16:21)
[2018-07-12] MEDS ORDERED: Acetaminophen 1,000 MG/100 ML Infusion Bottle IV SCH (18:00)
[2018-07-12] MEDS: Ampicillin/Sulbactam Na 3 GM in Sodium Chloride 0.9% 100 ML IV SCH (20:18)
[2018-07-12] MEDS: Tamsulosin 0.4 MG Cap.ER PO SCH (20:21)
[2018-07-12] MEDS: Pantoprazole 40 MG Vial IVPUSH SCH (21:31)
[2018-07-13] MEDS: Dextrose 5%-Lactated Ringers 1,000 ML IV SCH ×2 (00:22→06:23)
[2018-07-13] MEDS: Ampicillin/Sulbactam Na 3 GM in Sodium Chloride 0.9% 100 ML IV SCH ×4 (02:24→21:11)
[2018-07-13] MEDS: metroNIDAZOLE/Normal Saline 500 MG in Premix Bag 1 BAG IV SCH ×3 (06:16→21:14)
[2018-07-13] MEDS: diphenhydrAMINE 50 MG/ML SDV IVPUSH PRN (06:21)
[2018-07-13] MEDS ORDERED: Dextrose 5%-Lactated Ringers 1,000 ML IV SCH ×2 (08:15→11:45)
[2018-07-13] MEDS: fentaNYL 2,500 MCG in Sodium Chloride 0.9% 200 ML EPIDUR SCH (09:39)
[2018-07-13] MEDS: traMADol 50 MG Tab PO SCH ×3 (09:42→21:12)
[2018-07-13] MEDS: Bisacodyl 5 MG Tab PO SCH ×2 (09:43→21:13)
[2018-07-13] MEDS: Ciprofloxacin in D5W 400 MG in Premix Bag 1 BAG IV SCH ×4 (09:48→21:09)
[2018-07-13] MEDS: VERIFY SCOP PATCH TOP SCH (09:49)
--- NOTE | 2018-07-13 11:39 | PCM.PN ---
- General Info Date of Service: 07/13/18 Subjective Update: Patient had a successful sigmoid colon resection yesterday. There were no acute events overnight. Abdominal pain currently rated as a 4-5 out of 10 which is very tolerable for him. Low-grade fevers overnight. Cultures pending at this time. No bowel movement as of yet. Tolerated breakfast well. Hands and arms are feeling a little puffy today. Weight is up 13 pounds from yesterday. Functional Status: Reports: Pain Controlled, Tolerating Diet, Ambulating - Review of Systems General: Denies: Fever - Patient Data Vitals - Most Recent: Last Vital Signs Temp 35.9 C 07/13/18 07:00 Pulse 64 07/13/18 07:00 Resp 18 07/13/18 07:00 BP 134/74 07/13/18 07:00 Pulse Ox 97 07/13/18 07:24 Weight - Most Recent: 102.058 kg I&O - Last 24 Hours: Intake & Output 07/12/18 07/13/18 07/13/18 22:59 06:59 14:59 Intake Total 1425 2559 250 Output Total 585 570 40 Balance 840 1989 210 René Results Last 24 Hours: Microbiology 07/12/18 12:57 Gram Stain - Final Other - Abscess Wound Culture - Preliminary NO GROWTH AFTER 1 DAY Anaerobic Culture - Preliminary NO GROWTH AFTER 1 DAY Med Orders - Current: Current Medications Alvimopan (Entereg) 12 mg PO BID [facility] Stop: 07/19/18 09:01 Last Admin: 07/13/18 09:42 Dose: 12 mg Bisacodyl (Dulcolax) 10 mg PO BID [facility] Last Admin: 07/13/18 09:43 Dose: 10 mg Ropivacaine 48 ml/Dexamethasone 8 mg/Epinephrine HCl 0.4 mg/ Sodium Chloride 29.6 ml 0 ml NERVRT ASDIRECTED [facility] Diphenhydramine HCl (Benadryl) 25 mg IVPUSH Q6H PRN PRN Reason: ITCHING Diphenhydramine HCl (Benadryl) 50 mg IVPUSH Q6H PRN PRN Reason: ITCHING Last Admin: 07/13/18 06:21 Dose: 50 mg Hydroxyzine HCl (Vistaril) 100 mg IM Q4H PRN PRN Reason: PAIN Ciprofloxacin/Dextrose 400 mg/ (Premix) 200 mls @ 200 mls/hr IV Q12H [facility] Last Admin: 07/13/18 09:48 Dose: 200 mls/hr Metronidazole 500 mg/ Premix 100 mls @ 100 mls/hr IV Q8H [facility] Last Admin: 07/13/18 06:16 Dose: 100 mls/hr Fentanyl 2,500 mcg/ Sodium (Chloride) 250 mls @ 0 mls/hr EPIDUR TITRATE [facility]; Protocol Last Admin: 07/13/18 09:39 Dose: 12 ml/hr, 12 mls/hr Ampicillin Sodium/Sulbactam (Sodium 3 gm/ Sodium Chloride) 100 mls @ 200 mls/ hr IV Q6H [facility] Last Admin: 07/13/18 09:45 Dose: 200 mls/hr Magnesium Sulfate 2 gm/ Premix 50 mls @ 12.5 mls/hr IV ONETIME ONE Stop: 07/13/18 15:36 Dextrose/Lactated Ringer's (Dextrose 5%-Lactated Ringers) 1,000 mls @ 0 mls/hr IV ASDIRECTED [facility] Ibuprofen (Motrin) 600 mg PO Q6H [facility] Lactobacillus Rhamnosus (Culturelle) 1 cap PO BID [facility] Naloxone HCl (Narcan) 0.1 mg IVPUSH Q5M PRN PRN Reason: RESP RATE LESS THAN 6/MINUTE Naloxone HCl (Narcan) 0.4 mg IV ASDIRECTED PRN PRN Reason: ITCHING Verify Scop Patch 0 each TOP DAILY [facility] Last Admin: 07/13/18 09:49 Dose: Not Given Ondansetron HCl (Zofran) 4 mg IV Q4H PRN PRN Reason: Nausea/Vomiting Pantoprazole Sodium (Protonix Iv) 40 mg IVPUSH Q24H [facility] Last Admin: 07/12/18 21:31 Dose: 40 mg Senna/Docusate Sodium (Senna Plus) 2 tab PO BID [facility] Last Admin: 07/13/18 09:43 Dose: 2 tab Sodium Chloride (Saline Flush) 10 ml FLUSH ASDIRECTED PRN PRN Reason: Keep Vein Open Tamsulosin HCl (Flomax) 0.4 mg PO BEDTIME [facility] Last Admin: 07/12/18 20:21 Dose: 0.4 mg Tramadol HCl (Ultram) 50 mg PO Q6H [facility] Last Admin: 07/13/18 09:42 Dose: 50 mg Discontinued Medications Acetaminophen (Tylenol Extra Strength) 1,000 mg PO ONETIME ONE Stop: 07/11/18 19:09 Last Admin: 07/11/18 20:45 Dose: 1,000 mg Acetaminophen (Tylenol) 650 mg PO Q4H PRN PRN Reason: Pain (Mild 1-3)/fever Last Admin: 07/12/18 05:05 Dose: 650 mg Dexamethasone (Dexamethasone) Confirm Administered Dose 4 mg .ROUTE .STK-MED ONE Stop: 07/12/18 08:46 Fentanyl (Sublimaze) Confirm Administered Dose 250 mcg .ROUTE .STK-MED ONE Stop: 07/12/18 08:45 Glycopyrrolate (Robinul) Confirm Administered Dose 1 mg .ROUTE .STK-MED ONE Stop: 07/12/18 08:46 Hydromorphone HCl (Dilaudid) 0.5 mg IVPUSH Q2H PRN PRN Reason: Pain Lactated Ringer's (Ringers, Lactated) 1,000 mls @ 500 mls/hr IV ASDIRECTED [facility] Last Admin: 07/11/18 20:49 Dose: 500 mls/hr Sodium Chloride (Normal Saline) 100 mls @ 3 mls/sec IV ONETIME ONE Stop: 07/11/18 20:14 Last Admin: 07/11/18 20:30 Dose: 3 mls/sec Ciprofloxacin/Dextrose 400 mg/ (Premix) 200 mls @ 200 mls/hr IV ONETIME ONE Stop: 07/11/18 22:17 Last Admin: 07/11/18 21:45 Dose: 200 mls/hr Metronidazole 500 mg/ Premix 100 mls @ 100 mls/hr IV ONETIME ONE Stop: 07/11/18 22:17 Last Admin: 07/11/18 21:45 Dose: 100 mls/hr Ciprofloxacin/Dextrose 400 mg/ (Premix) 200 mls @ 200 mls/hr IV Q12H [facility] Last Admin: 07/11/18 22:20 Dose: Not Given Lactated Ringer's (Ringers, Lactated) 1,000 mls @ 125 mls/hr IV ASDIRECTED [facility] Last Admin: 07/12/18 05:10 Dose: 125 mls/hr Metronidazole 500 mg/ Premix 100 mls @ 100 mls/hr IV Q8H [facility] Last Admin: 07/11/18 22:20 Dose: Not Given Sodium Chloride (Normal Saline) Confirm Administered Dose 10 mls @ as directed .ROUTE .STK-MED ONE Stop: 07/12/18 12:16 Lactated Ringer's (Ringers, Lactated) Confirm Administered Dose 1,000 mls @ as directed .ROUTE .STK-MED ONE Stop: 07/12/18 12:17 Acetaminophen (Ofirmev) Confirm Administered Dose 100 mls @ as directed IV .STK- MED ONE Stop: 07/12/18 12:18 Ampicillin Sodium/Sulbactam (Sodium 3 gm/ Sodium Chloride) 100 mls @ 200 mls/ hr IV ONETIME ONE Stop: 07/12/18 14:29 Last Admin: 07/12/18 14:59 Dose: 200 mls/hr Dextrose/Lactated Ringer's (Dextrose 5%-Lactated Ringers) 1,000 mls @ 175 mls/ hr IV ASDIRECTED [facility] Last Admin: 07/13/18 06:23 Dose: 175 mls/hr Acetaminophen (Ofirmev) 100 mls @ 400 mls/hr IV Q6H [facility] Stop: 07/13/18 12:14 Last Admin: 07/13/18 05:47 Dose: 400 mls/hr Dextrose/Lactated Ringer's (Dextrose 5%-Lactated Ringers) 1,000 mls @ 100 mls/ hr IV ASDIRECTED [facility] Last Admin: 07/13/18 08:19 Dose: 100 mls/hr Iopamidol (Isovue-300 (61%)) 150 ml IV . DIRECTED [facility] Last Admin: 07/11/18 20:31 Dose: 150 ml Ketamine HCl (Ketalar) 32 mg IV ASDIRECTED [facility] Meropenem (Merrem) Confirm Administered Dose 500 mg .ROUTE .STK-MED ONE Stop: 07/12/18 10:42 Last Admin: 07/12/18 13:59 Dose: 1,000 mg Meropenem (Merrem) Confirm Administered Dose 500 mg .ROUTE .STK-MED ONE Stop: 07/12/18 13:03 Neostigmine Methylsulfate (Neostigmine) Confirm Administered Dose 5 mg .ROUTE .STK-MED ONE Stop: 07/12/18 08:46 Verify Scop Patch 0 each TOP BID [facility] Last Admin: 07/12/18 16:15 Dose: Not Given Ondansetron HCl (Zofran) Confirm Administered Dose 4 mg .ROUTE .STK-MED ONE Stop: 07/12/18 08:46 Pantoprazole Sodium (Protonix Iv) 40 mg IVPUSH Q24H [facility] Last Admin: 07/11/18 22:52 Dose: 40 mg Propofol (Diprivan 20 Ml) Confirm Administered Dose 200 mg .ROUTE .STK-MED ONE Stop: 07/12/18 08:46 Rocuronium [place] (Zemuron) Confirm Administered Dose 50 mg .ROUTE .STK-MED ONE Stop: 07/12/18 08:46 Rocuronium [place] (Zemuron) Confirm Administered Dose 50 mg .ROUTE .STK-MED ONE Stop: 07/12/18 13:03 Scopolamine (Transderm-Scop) Confirm Administered Dose 1.5 mg .ROUTE .STK-MED ONE Stop: 07/12/18 12:17 Succinylcholine Chloride (Quelicin) Confirm Administered Dose 200 mg .ROUTE .STK -MED ONE Stop: 07/12/18 08:46 - Exam Quality Assessment: Supplemental Oxygen General: Alert, Oriented, Cooperative, No Acute Distress Lungs: Clear to Auscultation, Normal Respiratory Effort Cardiovascular: Regular Rate, Regular Rhythm GI/Abdominal Exam: Soft, No Distention Extremities: No Pedal Edema, Other (mild swelling of both hands) Skin: Warm, Dry Psy/Mental Status: Alert, Normal Affect - Problem List Review Problem List Initiated/Reviewed/Updated: Yes - My Orders Last 24 Hours: My Active Orders 07/13/18 11:37 Magnesium Sulfate/Water [Magnesium Sulfate in Water Premix] 2 gm Premix Bag 1 bag IV ONETIME 07/13/18 11:45 Dextrose 5%-Lactated Ringers 1,000 ml IV ASDIRECTED 07/13/18 21:00 Lactobacillus Rhamnosus GG [Culturelle] 1 cap PO BID 07/14/18 05:00 BASIC METABOLIC PANEL,BMP [CHEM] Timed CBC W/O DIFF,HEMOGRAM [HEME] Timed (1) - Plan Plan:: ASSESSMENT AND PLAN COMPLICATED DIVERTICULITIS WITH ABSCESS - surgical intervention completed yesterday with sigmoid colon resection. Tolerating antibiotics. Cultures negative so far. Pain is well-controlled. Delayed primary closure planned for tomorrow morning. -Regular diet -IV fluids at TKO with increased weight and developing edema -Pain and nausea medication as needed -IV ciprofloxacin and metronidazole -Additional postoperative cares per the surgical team MAINTENANCE ISSUES -DVT prophylaxis; SCUDS -GI prophylaxis; Protonix 40 mg IV daily -Mares catheter; not indicated -Nutrition; nothing by mouth DISPOSITION - anticipate discharge to home after the hospital stay. Vincent Kowalski M.D.
[2018-07-13] MEDS: Ibuprofen 600 MG Tab PO SCH ×3 (12:25→23:19)
[2018-07-13] MEDS ORDERED: Magnesium Sulfate/Water 2 GM in Premix Bag 1 BAG IV ONE (12:30)
--- NOTE | 2018-07-13 13:43 | PN ---
DATE OF SERVICE: 07/13/2018 The patient is postop day 1 from a rectosigmoid resection along with drainage of pericolonic abscess. Clinically, he is doing well at this point. Gram stain thus far has not shown any organism, but there is obviously, with an abscess involved, more or less likely between the urinary bladder and the mid sigmoid colon. We will back down on the IV rate somewhat today, leave the Mares catheter in, and then start ibuprofen and tramadol scheduled acetaminophen, and we will plan to proceed with delayed primary closure of abdominal incision tomorrow. At that time, we will discontinue the Mares catheter and epidural catheter, have the regular diet for today and begin bowel stimulation. Mike Arthur MD /[id number]
--- NOTE | 2018-07-13 14:30 | OR ---
DATE OF PROCEDURE: 07/12/2018 PREOPERATIVE DIAGNOSIS: Perforated sigmoid colon diverticulitis with pericolonic abscess. POSTOPERATIVE DIAGNOSES: 1. Perforated sigmoid colon diverticulitis with pericolonic abscess. 2. Incarcerated umbilical hernia. OPERATIVE PROCEDURES: Exploratory laparotomy with, 1. Rectosigmoid resection with low coloproctostomy (37905). 2. Drainage of pericolonic abscess (66024). 3. Repair of incarcerated umbilical hernia (63271). 4. Mobilization of omentum into the pelvis to displace small bowel from pelvic and abdominal wall to the reduce subsequent adhesion formation (88135). ANESTHESIA: General plus epidural. DIE TECHNICIAN: Ema Mac PA-C. INDICATIONS FOR PROCEDURE: A 58-year-old presenting with perforated diverticulitis. This is the second episode of diverticulitis. This was associated with a pericolonic abscess, which does not appear to be amenable to percutaneous drainage. The plan is to proceed with an exploratory laparotomy, drainage of the abscess and rectosigmoid resection. This in a location that we should be able to, with high percentage, provide a primary anastomosis rather than a temporary colostomy. The patient is aware of the possible need for colostomy depending on intraoperative findings or in the event that he was to develop leak from a colorectal anastomosis in the days postoperatively. Potential risks otherwise including bleeding, infection, injury of other viscera, and subsequent abscess formation were all reviewed, and the patient wishes to proceed. DETAILS OF PROCEDURE: The patient was taken to the operating room and placed in a supine position. After an epidural catheter was placed, the patient underwent a general endotracheal anesthetic and a Mares catheter inserted. The abdomen was then prepped and draped. A lower midline incision was then made from the umbilicus downward to the pubis and carried down through the full-thickness abdominal wall. Upon entering the peritoneal cavity, the patient was noted to have a firm inflammatory mass directly under the incision. As one palpated somewhat superiorly, the patient was noted to have an incarcerated umbilical hernia containing preperitoneal fat. This was then reduced and hernia contents were then excised. The urinary bladder appeared to be occluding the abscess initially and as this was peeled back, the pericolonic abscess was entered and drained. Cultures of this were obtained. It was notable that the location of the abscess in the inferior aspect of the area of diverticulitis had walled off the urinary bladder. If a nonoperative approach was attempted, it would likely result in development of a colovesical fistula. The bladder wall at the level of the abscess cavity, which had formed a portion of the abscess cavity wall, was markedly thickened, but no obvious fistula was present at this point. The sigmoid colon was then mobilized upward and then divided away from some adhesions. At this point, the midportion of the rectum was divided with a EVELINE stapler as was the mid- sigmoid colon and the intervening colon and rectum were divided from its mesentery with EVELINE estrellita as well. Care was taken to identify and divert the left ureter away from the course of the dissection. The specimen was then delivered from the field. Subsequently, the specimen was opened off the field and found to be consistent with diverticular disease with no evidence of neoplasia. Additional abscess within the wall of the colon was also identified as this was opened. At this point, the lateral peritoneal reflection of the descending colon and more proximal sigmoid colon was divided to allow freeing up of those structures for a tension-free anastomosis. An anvil of a 28-mm EEA stapler was then selected and after dividing the sigmoid colon staple line, this was placed into the sigmoid colon, and this was then closed off with a new EVELINE staple line, and the anvil was then brought out just posterior to that staple line to the wall of the sigmoid colon to the rectum. Then, the main body of EEA stapler was brought up the apex of divided rectum. The stapler was then united and the coloproctostomy thus accomplished. Upon removal of the stapler, double donuts of mucosa were noted within it. With the proximal sigmoid colon being occluded, the colonoscope was then passed through the rectum and brought up to the level of the anastomosis. This was visualized and found to be intact with good blood supply evident on both sides of the anastomosis and with insufflation and the area being submerged with an antibiotic-containing saline solution, no air bubbles or other signs of leaks were noted. The colonoscope was then withdrawn. The coloproctostomy was then reinforced with some 3-0 Vicryl seromuscular stitch along with fibrin sealant. The area was then irrigated with additional meropenem-containing saline solution. The omentum was then mobilized downward into the area of the pelvis and it was sutured to the posterior aspect of the urinary bladder thus preventing the small bowel from becoming adherent to the upper aspect of the pelvis as well as the anterior abdominal wall. Two Andry-Mendieta drains were then placed one on each side and positioned adjacent to the coloproctostomy and from there into the depths of the pelvis. The posterior peritoneum from the linea semilunaris downward was then closed with a #2 Vicryl stitch and the anterior fascia closed with a #2 Vicryl stitch. The skin and subcutaneous tissue were obviously at high risk for wound infection and were packed open. At the upper aspect of the fascial closure of the umbilical hernia, was also then closed from within using the same #2 Vicryl stitch. The drains were affixed with some 4-0 Vicryl stitch and dressing applied. The patient was taken to the recovery room in a satisfactory condition. Physician child center assistant, Ema Mac, played an essential role in assisting in this case, helping to position the patient, retract structures as needed, as well as suturing and cutting sutures when indicated. Her presence improved patient safety and decreased the operative time. Mike Arthur MD /[id number]
[2018-07-13] MEDS: Tamsulosin 0.4 MG Cap.ER PO SCH (21:12)
[2018-07-13] MEDS: Lactobacillus Rhamnosus GG (Probiotic) Cap PO SCH (21:13)
[2018-07-13] MEDS: Pantoprazole 40 MG Vial IVPUSH SCH (21:14)
[2018-07-13] MEDS ORDERED: Furosemide 20 MG/2 ML VIAL IVPUSH ONE (23:01)
[2018-07-14] MEDS: Ampicillin/Sulbactam Na 3 GM in Sodium Chloride 0.9% 100 ML IV SCH ×4 (02:18→22:10)
[2018-07-14] MEDS: traMADol 50 MG Tab PO SCH ×4 (02:18→20:42)
[2018-07-14] MEDS: Ondansetron 4 MG/2 ML SDV IV PRN ×4 (03:05→20:37)
[2018-07-14] MEDS: Ibuprofen 600 MG Tab PO SCH ×4 (05:03→23:48)
[2018-07-14] MEDS: metroNIDAZOLE/Normal Saline 500 MG in Premix Bag 1 BAG IV SCH ×3 (05:03→23:13)
[2018-07-14] MEDS ORDERED: Lidocaine 1% with EPINEPHrine 1:100,000 50 ML MDV ONE (06:45)
[2018-07-14] MEDS ORDERED: Meropenem 500 MG SDV ONE (06:45)
[2018-07-14] MEDS ORDERED: Bupivacaine 0.5% 50 ML MDV ONE (06:53)
[2018-07-14] MEDS ORDERED: Propofol 200 MG/20 ML SDV ONE (07:01)
[2018-07-14] MEDS ORDERED: Midazolam 1 MG/ML 2 ML SDV ONE (07:01)
[2018-07-14] MEDS ORDERED: fentaNYL 100 MCG/2 ML SDV ONE (07:01)
[2018-07-14] MEDS ORDERED: Meropenem 500 MG SDV IRR ONE (09:00)
[2018-07-14] MEDS: Ciprofloxacin in D5W 400 MG in Premix Bag 1 BAG IV SCH ×4 (10:06→20:41)
--- NOTE | 2018-07-14 10:27 | PCM.PN ---
- General Info Date of Service: 07/14/18 Subjective Update: there were no acute events overnight. The patient did receive a dose of furosemide last night did not have impressive urine output afterwards. He had an episode of vomiting this morning. His pain is rated as 4-5 out of 10 which is tolerable for him. He has been belching a lot. He did pass some gas but has not had a bowel movement. Abdomen feels more distended. Feels short of breath and is audibly wheezy today. No fevers. Functional Status: Reports: Pain Controlled - Review of Systems General: Denies: Fever Cardiovascular: Reports: Edema Gastrointestinal: Reports: Vomiting - Patient Data Vitals - Most Recent: Last Vital Signs Temp 37.0 C 07/14/18 08:10 Pulse 76 07/14/18 10:00 Resp 16 07/14/18 10:00 BP 156/81 H 07/14/18 10:00 Pulse Ox 95 07/14/18 10:00 Weight - Most Recent: 104.054 kg I&O - Last 24 Hours: Intake & Output 07/13/18 07/14/18 07/14/18 22:59 06:59 14:59 Intake Total 1095 718 75 Output Total 700 750 Balance 395 -32 75 Lab Results Last 24 Hours: Laboratory Results - last 24 hr 07/14/18 07/14/18 Range/Units 05:00 05:00 WBC 12.4 H (4.5-11.0) K/uL RBC 3.85 L (4.30-5.90) M/uL Hgb 11.4 L (12.0-15.0) g/dL Hct 34.7 L (40.0-54.0) % MCV 90 (80-98) fL MCH 30 (27-31) pg MCHC 33 (32-36) % Plt Count 257 (150-400) K/uL Sodium 137 L (140-148) mmol/L Potassium 4.0 (3.6-5.2) mmol/L Chloride 100 (100-108) mmol/L Carbon Dioxide 30 (21-32) mmol/L Anion Gap 11.0 (5.0-14.0) mmol/L BUN 18 D (7-18) mg/dL Creatinine 1.1 (0.8-1.3) mg/dL Est Cr Clr Drug Dosing 65.69 mL/min Estimated GFR (MDRD) > 60 (>60) Glucose 145 H (74-106) mg/dL Calcium 8.6 (8.5-10.1) mg/dL René Results Last 24 Hours: Microbiology 07/12/18 12:57 Gram Stain - Final Other - Abscess Wound Culture - Preliminary NO GROWTH AFTER 2 DAYS Anaerobic Culture - Preliminary NO GROWTH AFTER 2 DAYS Med Orders - Current: Current Medications Alvimopan (Entereg) 12 mg PO BID [facility] Stop: 07/19/18 09:01 Last Admin: 07/13/18 21:13 Dose: 12 mg Bisacodyl (Dulcolax) 10 mg PO BID [facility] Last Admin: 07/13/18 21:13 Dose: 10 mg Furosemide (Lasix) 40 mg IVPUSH NOW ONE Stop: 07/14/18 11:01 Hydroxyzine HCl (Vistaril) 100 mg IM Q4H PRN PRN Reason: PAIN Ciprofloxacin/Dextrose 400 mg/ (Premix) 200 mls @ 200 mls/hr IV Q12H [facility] Last Admin: 07/14/18 10:06 Dose: 200 mls/hr Metronidazole 500 mg/ Premix 100 mls @ 100 mls/hr IV Q8H [facility] Last Admin: 07/14/18 05:03 Dose: 100 mls/hr Ampicillin Sodium/Sulbactam (Sodium 3 gm/ Sodium Chloride) 100 mls @ 200 mls/ hr IV Q6H [facility] Last Admin: 07/14/18 08:27 Dose: 200 mls/hr Dextrose/Lactated Ringer's (Dextrose 5%-Lactated Ringers) 1,000 mls @ 0 mls/hr IV ASDIRECTED [facility] Ibuprofen (Motrin) 600 mg PO Q6H [facility] Last Admin: 07/14/18 05:03 Dose: Not Given Lactobacillus Rhamnosus (Culturelle) 1 cap PO BID [facility] Last Admin: 07/13/18 21:13 Dose: 1 cap Verify Scop Patch 0 each TOP DAILY [facility] Last Admin: 07/13/18 09:49 Dose: Not Given Ondansetron HCl (Zofran) 4 mg IV Q4H PRN PRN Reason: Nausea/Vomiting Last Admin: 07/14/18 09:59 Dose: 4 mg Pantoprazole Sodium (Protonix Iv) 40 mg IVPUSH Q24H [facility] Last Admin: 07/13/18 21:14 Dose: 40 mg Senna/Docusate Sodium (Senna Plus) 2 tab PO BID [facility] Last Admin: 07/13/18 21:13 Dose: 2 tab Sodium Chloride (Saline Flush) 10 ml FLUSH ASDIRECTED PRN PRN Reason: Keep Vein Open Tamsulosin HCl (Flomax) 0.4 mg PO BEDTIME [facility] Last Admin: 07/13/18 21:12 Dose: 0.4 mg Tramadol HCl (Ultram) 50 mg PO Q6H [facility] Last Admin: 07/14/18 02:18 Dose: Not Given Discontinued Medications Acetaminophen (Tylenol Extra Strength) 1,000 mg PO ONETIME ONE Stop: 07/11/18 19:09 Last Admin: 07/11/18 20:45 Dose: 1,000 mg Acetaminophen (Tylenol) 650 mg PO Q4H PRN PRN Reason: Pain (Mild 1-3)/fever Last Admin: 07/12/18 05:05 Dose: 650 mg Bupivacaine HCl (Marcaine 0.5%) Confirm Administered Dose 50 ml .ROUTE .STK-MED ONE Stop: 07/14/18 06:54 Last Admin: 07/14/18 09:05 Dose: 20 ml Ropivacaine 48 ml/Dexamethasone 8 mg/Epinephrine HCl 0.4 mg/ Sodium Chloride 29.6 ml 0 ml NERVRT ASDIRECTED [facility] Last Admin: 07/14/18 08:57 Dose: 80 syringe Dexamethasone (Dexamethasone) Confirm Administered Dose 4 mg .ROUTE .STK-MED ONE Stop: 07/12/18 08:46 Diphenhydramine HCl (Benadryl) 25 mg IVPUSH Q6H PRN PRN Reason: ITCHING Diphenhydramine HCl (Benadryl) 50 mg IVPUSH Q6H PRN PRN Reason: ITCHING Last Admin: 07/13/18 06:21 Dose: 50 mg Fentanyl (Sublimaze) Confirm Administered Dose 250 mcg .ROUTE .STK-MED ONE Stop: 07/12/18 08:45 Fentanyl (Sublimaze) Confirm Administered Dose 100 mcg .ROUTE .STK-MED ONE Stop: 07/14/18 07:02 Furosemide (Lasix) 20 mg IVPUSH ONETIME ONE Stop: 07/13/18 23:02 Last Admin: 07/13/18 23:19 Dose: 20 mg Glycopyrrolate (Robinul) Confirm Administered Dose 1 mg .ROUTE .STK-MED ONE Stop: 07/12/18 08:46 Hydromorphone HCl (Dilaudid) 0.5 mg IVPUSH Q2H PRN PRN Reason: Pain Lactated Ringer's (Ringers, Lactated) 1,000 mls @ 500 mls/hr IV ASDIRECTED [facility] Last Admin: 07/11/18 20:49 Dose: 500 mls/hr Sodium Chloride (Normal Saline) 100 mls @ 3 mls/sec IV ONETIME ONE Stop: 07/11/18 20:14 Last Admin: 07/11/18 20:30 Dose: 3 mls/sec Ciprofloxacin/Dextrose 400 mg/ (Premix) 200 mls @ 200 mls/hr IV ONETIME ONE Stop: 07/11/18 22:17 Last Admin: 07/11/18 21:45 Dose: 200 mls/hr Metronidazole 500 mg/ Premix 100 mls @ 100 mls/hr IV ONETIME ONE Stop: 07/11/18 22:17 Last Admin: 07/11/18 21:45 Dose: 100 mls/hr Ciprofloxacin/Dextrose 400 mg/ (Premix) 200 mls @ 200 mls/hr IV Q12H [facility] Last Admin: 07/11/18 22:20 Dose: Not Given Lactated Ringer's (Ringers, Lactated) 1,000 mls @ 125 mls/hr IV ASDIRECTED [facility] Last Admin: 07/12/18 05:10 Dose: 125 mls/hr Metronidazole 500 mg/ Premix 100 mls @ 100 mls/hr IV Q8H [facility] Last Admin: 07/11/18 22:20 Dose: Not Given Fentanyl 2,500 mcg/ Sodium (Chloride) 250 mls @ 0 mls/hr EPIDUR TITRATE [facility]; Protocol Last Admin: 07/13/18 09:39 Dose: 12 ml/hr, 12 mls/hr Sodium Chloride (Normal Saline) Confirm Administered Dose 10 mls @ as directed .ROUTE .STK-MED ONE Stop: 07/12/18 12:16 Lactated Ringer's (Ringers, Lactated) Confirm Administered Dose 1,000 mls @ as directed .ROUTE .STK-MED ONE Stop: 07/12/18 12:17 Acetaminophen (Ofirmev) Confirm Administered Dose 100 mls @ as directed IV .STK- MED ONE Stop: 07/12/18 12:18 Ampicillin Sodium/Sulbactam (Sodium 3 gm/ Sodium Chloride) 100 mls @ 200 mls/ hr IV ONETIME ONE Stop: 07/12/18 14:29 Last Admin: 07/12/18 14:59 Dose: 200 mls/hr Dextrose/Lactated Ringer's (Dextrose 5%-Lactated Ringers) 1,000 mls @ 175 mls/ hr IV ASDIRECTED [facility] Last Admin: 07/13/18 06:23 Dose: 175 mls/hr Acetaminophen (Ofirmev) 100 mls @ 400 mls/hr IV Q6H [facility] Stop: 07/13/18 12:14 Last Admin: 07/13/18 05:47 Dose: 400 mls/hr Dextrose/Lactated Ringer's (Dextrose 5%-Lactated Ringers) 1,000 mls @ 100 mls/ hr IV ASDIRECTED [facility] Last Admin: 07/13/18 08:19 Dose: 100 mls/hr Magnesium Sulfate 2 gm/ Premix 50 mls @ 25 mls/hr IV ONETIME ONE Stop: 07/13/18 14:29 Last Admin: 07/13/18 12:26 Dose: 25 mls/hr Iopamidol (Isovue-300 (61%)) 150 ml IV . DIRECTED [facility] Last Admin: 07/11/18 20:31 Dose: 150 ml Ketamine HCl (Ketalar) 32 mg IV ASDIRECTED [facility] Lidocaine/Epinephrine (Xylocaine 1% With Epinephrine 1:100,000) Confirm Administered Dose 50 ml .ROUTE .STK-MED ONE Stop: 07/14/18 06:46 Last Admin: 07/14/18 09:05 Dose: 20 ml Meropenem (Merrem) Confirm Administered Dose 500 mg .ROUTE .STK-MED ONE Stop: 07/12/18 10:42 Last Admin: 07/12/18 13:59 Dose: 1,000 mg Meropenem (Merrem) Confirm Administered Dose 500 mg .ROUTE .STK-MED ONE Stop: 07/12/18 13:03 Meropenem (Merrem) Confirm Administered Dose 500 mg .ROUTE .STK-MED ONE Stop: 07/14/18 06:46 Midazolam HCl (Versed 1 Mg/Ml) Confirm Administered Dose 2 mg .ROUTE .STK-MED ONE Stop: 07/14/18 07:02 Naloxone HCl (Narcan) 0.1 mg IVPUSH Q5M PRN PRN Reason: RESP RATE LESS THAN 6/MINUTE Naloxone HCl (Narcan) 0.4 mg IV ASDIRECTED PRN PRN Reason: ITCHING Neostigmine Methylsulfate (Neostigmine) Confirm Administered Dose 5 mg .ROUTE .STK-MED ONE Stop: 07/12/18 08:46 Verify Scop Patch 0 each TOP BID [facility] Last Admin: 07/12/18 16:15 Dose: Not Given Ondansetron HCl (Zofran) Confirm Administered Dose 4 mg .ROUTE .STK-MED ONE Stop: 07/12/18 08:46 Pantoprazole Sodium (Protonix Iv) 40 mg IVPUSH Q24H [facility] Last Admin: 07/11/18 22:52 Dose: 40 mg Propofol (Diprivan 20 Ml) Confirm Administered Dose 200 mg .ROUTE .STK-MED ONE Stop: 07/12/18 08:46 Propofol (Diprivan 20 Ml) Confirm Administered Dose 200 mg .ROUTE .STK-MED ONE Stop: 07/14/18 07:02 Rocuronium Mcnary (Zemuron) Confirm Administered Dose 50 mg .ROUTE .STK-MED ONE Stop: 07/12/18 08:46 Rocuronium Mcnary (Zemuron) Confirm Administered Dose 50 mg .ROUTE .STK-MED ONE Stop: 07/12/18 13:03 Scopolamine (Transderm-Scop) Confirm Administered Dose 1.5 mg .ROUTE .STK-MED ONE Stop: 07/12/18 12:17 Succinylcholine Chloride (Quelicin) Confirm Administered Dose 200 mg .ROUTE .STK -MED ONE Stop: 07/12/18 08:46 - Exam Quality Assessment: Supplemental Oxygen General: Alert, Oriented, Cooperative, No Acute Distress Lungs: Normal Respiratory Effort, Decreased Breath Sounds (left lung base), Crackles (both bases), Wheezing (mild exp in the lower lungs) Cardiovascular: Regular Rate, Regular Rhythm GI/Abdominal Exam: Distended, Tender, Abnormal Bowel Sounds (tympanic) Extremities: Pedal Edema, Other (swelling left arm ) Skin: Warm, Dry Psy/Mental Status: Alert, Normal Affect - Problem List Review Problem List Initiated/Reviewed/Updated: Yes - My Orders Last 24 Hours: My Active Orders 07/13/18 11:45 Dextrose 5%-Lactated Ringers 1,000 ml IV ASDIRECTED 07/13/18 21:00 Lactobacillus Rhamnosus GG [Culturelle] 1 cap PO BID 07/14/18 10:23 Furosemide [Lasix] 40 mg IVPUSH NOW ONE 07/14/18 10:24 Abdomen 2V AP Flat Upright [CR] Urgent - Plan Plan:: ASSESSMENT AND PLAN COMPLICATED DIVERTICULITIS WITH ABSCESS - surgical intervention completed 06/11 with sigmoid colon resection. Tolerating antibiotics. Cultures negative so far. Pain is well-controlled. patient vomiting this morning. X-ray suggest ileus. -IV fluids at TKO with increased weight and developing edema -Pain and nausea medication as needed -IV ciprofloxacin and metronidazole -Additional postoperative cares per the surgical team Hypoxia - patient remains on 2 L of oxygen and has significant edema. Suspect excess volume from the initial resuscitation. Weight is up more than 10 pounds. -Furosemide 40 mg 1 this morning and reassess this afternoon MAINTENANCE ISSUES -DVT prophylaxis; SCUDS -GI prophylaxis; Protonix 40 mg IV daily -Mares catheter; not indicated -Nutrition; nothing by mouth DISPOSITION - anticipate discharge to home after the hospital stay. Vincent Kowalski M.D.
[2018-07-14] MEDS ORDERED: Sodium Chloride 0.9% 1,000 ML IV SCH (10:30)
[2018-07-14] MEDS ORDERED: Furosemide 40 MG/4 ML VIAL IVPUSH ONE (11:00)
[2018-07-14] MEDS: Lactobacillus Rhamnosus GG (Probiotic) Cap PO SCH ×2 (11:11→20:41)
[2018-07-14] MEDS: VERIFY SCOP PATCH TOP SCH (11:11)
[2018-07-14] MEDS: Bisacodyl 5 MG Tab PO SCH ×2 (11:11→20:42)
--- NOTE | 2018-07-14 11:12 | PN ---
DATE OF SERVICE: 07/14/2018 SUBJECTIVE: Mike is postoperative day 2. He will be having delayed primary closure this morning. He has had Lasix for decreased urine output. He is having bowel sounds, but is not passing any flatus or had a bowel movement yet. Vital signs have been stable. He had 1 episode of nausea around 2 am give Zofran and it did clear. REVIEW OF SYSTEMS: Remainder of review of systems negative for any pertinent positives and negatives. He is n.p.o. for delayed primary closure. OBJECTIVE: GENERAL: Mike Long is a 58-year-old male. He is alert and oriented. VITAL SIGNS: TPR is 98.8, 84, 14, blood pressure 125/68. HEENT: Negative. NECK: Supple. HEART: Regular rate and rhythm. LUNGS: Clear. ABDOMEN: Dressings dry and intact. Abdominal binder is on. EXTREMITIES: SCDs are on, and there is no peripheral edema. ASSESSMENT: Exploratory laparotomy with: 1. Rectosigmoid resection with coloproctostomy. 2. Drainage of pericolonic abscess. 3. Repair of incarcerated umbilical hernia. 4. Mobilization of omentum for perforated sigmoid colon, diverticulitis with pericolonic abscess, and incarcerated umbilical hernia. Date of surgery 07/12/2018. Surgeon, Mike Arthur MD. PLAN: He will be taken for delayed primary closure. Orders to be written after his delayed primary closure. Ema Mac PA-C /[id number]
[2018-07-14] MEDS: HYDROmorphone 1 MG/ML Syringe IV PRN ×4 (11:28→23:47)
--- NOTE | 2018-07-14 12:21 | CRLCR ---
Indication: Vomiting, abdominal pain Technique: KUB 2 view Comparison: CT abdomen pelvis July 11, 2018 Findings/Impression: : A thin bore catheter or wire overlies the epigastric region. Two MAULIK drains and skin estrellita project over the lower abdomen. A safety pin projects over the left lower quadrant, likely external to the patient. There are air-filled but nondilated loops of colon. No pneumatosis. Questionable thickening of the colonic wall at the level of the distal transverse colon. Consider CT abdomen pelvis for further evaluation. Dictated by Carmen Looney MD @ Jul 14 2018 12:18PM Signed by Dr. Carmen Looney @ Jul 14 2018 12:21PM
[2018-07-14] MEDS: Metoclopramide 10 MG/2 ML SDV IVPUSH SCH ×3 (13:06→23:48)
--- NOTE | 2018-07-14 13:56 | PN ---
DATE OF SERVICE: 07/14/2018 Overnight, the patient appears to have developed a little bit more of an ileus. The abdomen was fairly distended. I think we will back down on much oral intake that he is taking. But otherwise, he had a delayed primary closure of his abdominal incision today without incident. Mares catheter came out as did the epidural catheter. We will continue the tramadol, Tylenol, and ibuprofen with IV push Dilaudid as needed, supplement that. Otherwise, continue the bowel stimulation. Mike Arthur MD /[id number]
--- NOTE | 2018-07-14 14:32 | OR ---
DATE OF PROCEDURE: 07/14/2018 SURGEON: Mike Arthur MD PREOPERATIVE DIAGNOSIS: Open abdominal incision. POSTOPERATIVE DIAGNOSIS: Open abdominal incision. OPERATIVE PROCEDURE: Delayed primary closure of open abdominal incision. ANESTHESIA: Local plus IV sedation. INDICATIONS FOR PROCEDURE: This is a 58-year-old presenting with perforated diverticulitis. The skin and subcutaneous tissue were left open at the time of the procedure and is to undergo a delayed primary closure at this time. Potential risks including bleeding and infection were reviewed, and the patient wishes to proceed. DETAILS OF PROCEDURE: The patient was taken to the operating room. After IV sedation was administered, the operative dressing was taken down. The wound was inspected and found to be clean. There was a lower midline incision from the umbilicus down to the pubis. After the area was prepped and draped, bilateral transversus abdominis plane blocks were done with ultrasound guidance. The incision was then anesthetized with 1% lidocaine mixed with Marcaine and irrigated with meropenem-containing saline solution, and then closed with some 4-0 Vicryl stitch deep and estrellita for the skin. Dressing was applied. There were no evident complications. Mike Arthur MD /[id number]
[2018-07-14] MEDS: Tamsulosin 0.4 MG Cap.ER PO SCH (20:42)
[2018-07-14] MEDS: Pantoprazole 40 MG Vial IVPUSH SCH (21:04)
[2018-07-15] MEDS: Ondansetron 4 MG/2 ML SDV IV PRN ×2 (03:10→08:39)
[2018-07-15] MEDS: Ampicillin/Sulbactam Na 3 GM in Sodium Chloride 0.9% 100 ML IV SCH ×4 (03:21→20:14)
[2018-07-15] MEDS: traMADol 50 MG Tab PO SCH (03:21)
[2018-07-15] MEDS: HYDROmorphone 1 MG/ML Syringe IV PRN (03:22)
--- NOTE | 2018-07-15 04:49 | CRLCR ---
Indication: Ileus follow-up Technique: Abdomen 2 view, 5 films. Comparison: Abdomen 07/14/2018 Findings: Skin estrellita overlie the pelvis as well as 2 drains. Multiple air-fluid levels are present as well as mild colonic dilatation. Impression: Mild colonic dilatation, similar to the study of 1 day prior. Dictated by Mike Crockett MD @ Jul 15 2018 4:45AM Signed by Dr. Mike Crockett @ Jul 15 2018 4:47AM
[2018-07-15] MEDS: metroNIDAZOLE/Normal Saline 500 MG in Premix Bag 1 BAG IV SCH ×3 (05:29→22:31)
[2018-07-15] MEDS: Metoclopramide 10 MG/2 ML SDV IVPUSH SCH ×3 (05:31→17:38)
[2018-07-15] MEDS: Ibuprofen 600 MG Tab PO SCH (05:42)
--- NOTE | 2018-07-15 07:44 | CRLCR ---
INDICATION: NG tube placement. TECHNIQUE: Supine portable abdomen. IMPRESSION : NG tube with its tip projected at the level of the esophagus. The catheter requires advancement of between 15-20 centimeters to reach the stomach. FINDINGS: Distended gas-filled colon. Surgical drain left lower quadrant estrellita. Postoperative ileus could be considered. NG tube placement. The NG tube tip is projected at the level of the mid esophagus and is located 2.5 cm below the level of the caroline. Dictated by Afshin Pierre MD @ Jul 15 2018 7:41AM Signed by Dr. Afshin Pierre @ Jul 15 2018 7:43AM
[2018-07-15] MEDS ORDERED: Dextrose 5%-Lactated Ringers 1,000 ML IV SCH (08:00)
[2018-07-15] MEDS ORDERED: HYDROmorphone/Normal Saline 15 MG/30 ML PCA IV PRN (08:07)
[2018-07-15] MEDS ORDERED: Naloxone 0.4 MG/ML SDV IV PRN (08:07)
[2018-07-15] MEDS: Scopolamine 1.5 MG Transdermal Patch TRDERM SCH (08:42)
[2018-07-15] MEDS: Bisacodyl 10 MG Supp RECTAL SCH ×2 (08:43→21:35)
[2018-07-15] MEDS: Ciprofloxacin in D5W 400 MG in Premix Bag 1 BAG IV SCH ×4 (09:12→21:24)
[2018-07-15] MEDS: VERIFY SCOP PATCH TOP SCH (09:12)
--- NOTE | 2018-07-15 12:00 | PCM.PN ---
- General Info Date of Service: 07/15/18 Subjective Update: Overnight the patient did have one episode of increased pain and nausea. The NG tube was advanced further with resolution of discomfort and nausea. Pain is well -controlled at this time and abdominal distention has improved. He did pass some gas and had a bowel movement this morning. X-ray this morning showed ongoing evidence for ileus. He has not had any fevers. He is not on supplemental oxygen at this time. Functional Status: Reports: Pain Controlled - Review of Systems Gastrointestinal: Reports: Abdominal Pain. Denies: Flatus - Patient Data Vitals - Most Recent: Last Vital Signs Temp 35.9 C 07/15/18 10:31 Pulse 63 07/15/18 10:31 Resp 16 07/15/18 10:31 BP 133/67 07/15/18 10:31 Pulse Ox 93 L 07/15/18 10:31 Weight - Most Recent: 100.97 kg I&O - Last 24 Hours: Intake & Output 07/14/18 07/15/18 07/15/18 22:59 06:59 14:59 Intake Total 600 Output Total 1390 240 Balance -1390 -240 600 Lab Results Last 24 Hours: Laboratory Results - last 24 hr 07/15/18 07/15/18 Range/Units 05:20 05:20 WBC 10.8 (4.5-11.0) K/uL RBC 3.82 L (4.30-5.90) M/uL Hgb 11.3 L (12.0-15.0) g/dL Hct 33.8 L (40.0-54.0) % MCV 89 (80-98) fL MCH 30 (27-31) pg MCHC 33 (32-36) % Plt Count 285 (150-400) K/uL Sodium 135 L (140-148) mmol/L Potassium 3.5 L (3.6-5.2) mmol/L Chloride 99 L (100-108) mmol/L Carbon Dioxide 29 (21-32) mmol/L Anion Gap 10.5 (5.0-14.0) mmol/L BUN 17 (7-18) mg/dL Creatinine 1.0 (0.8-1.3) mg/dL Est Cr Clr Drug Dosing 72.26 mL/min Estimated GFR (MDRD) > 60 (>60) Glucose 159 H (74-106) mg/dL Calcium 8.6 (8.5-10.1) mg/dL René Results Last 24 Hours: Microbiology 07/12/18 12:57 Gram Stain - Final Other - Abscess Wound Culture - Final NO GROWTH AFTER 3 DAYS Anaerobic Culture - Final NO GROWTH AFTER 3 DAYS Med Orders - Current: Current Medications Bisacodyl (Dulcolax) 10 mg RECTAL BID [facility] Last Admin: 07/15/18 08:43 Dose: 10 mg Hydromorphone HCl (Dilaudid Biological Science Aide 15 Mg In Ns 30 Ml) 0 mg IV ASDIRECTED PRN; 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 Last Admin: 07/15/18 08:32 Dose: 15 mg Hydroxyzine HCl (Vistaril) 100 mg IM Q4H PRN PRN Reason: PAIN Ciprofloxacin/Dextrose 400 mg/ (Premix) 200 mls @ 200 mls/hr IV Q12H [facility] Last Admin: 07/15/18 09:12 Dose: 200 mls/hr Metronidazole 500 mg/ Premix 100 mls @ 100 mls/hr IV Q8H [facility] Last Admin: 07/15/18 05:29 Dose: 100 mls/hr Ampicillin Sodium/Sulbactam (Sodium 3 gm/ Sodium Chloride) 100 mls @ 200 mls/ hr IV Q6H [facility] Last Admin: 07/15/18 11:38 Dose: 200 mls/hr Metoclopramide HCl (Reglan) 10 mg IVPUSH Q6H [facility] Last Admin: 07/15/18 11:42 Dose: 10 mg Naloxone HCl (Narcan) 0.1 mg IV ASDIRECTED PRN PRN Reason: decreased respiratory rate Verify Scop Patch 0 each TOP DAILY [facility] Last Admin: 07/15/18 09:12 Dose: Not Given Ondansetron HCl (Zofran) 4 mg IV Q4H PRN PRN Reason: Nausea/Vomiting Last Admin: 07/15/18 08:39 Dose: 4 mg Pantoprazole Sodium (Protonix Iv) 40 mg IVPUSH Q24H [facility] Last Admin: 07/14/18 21:04 Dose: 40 mg Scopolamine (Transderm-Scop) 1.5 mg TRDERM Q72H [facility] Last Admin: 07/15/18 08:42 Dose: 1.5 mg Sodium Chloride (Saline Flush) 10 ml FLUSH ASDIRECTED PRN PRN Reason: Keep Vein Open Discontinued Medications Acetaminophen (Tylenol Extra Strength) 1,000 mg PO ONETIME ONE Stop: 07/11/18 19:09 Last Admin: 07/11/18 20:45 Dose: 1,000 mg Acetaminophen (Tylenol) 650 mg PO Q4H PRN PRN Reason: Pain (Mild 1-3)/fever Last Admin: 07/12/18 05:05 Dose: 650 mg Alvimopan (Entereg) 12 mg PO BID [facility] Stop: 07/19/18 09:01 Last Admin: 07/14/18 20:42 Dose: Not Given Bisacodyl (Dulcolax) 10 mg PO BID [facility] Last Admin: 07/14/18 20:42 Dose: Not Given Bupivacaine HCl (Marcaine 0.5%) Confirm Administered Dose 50 ml .ROUTE .STK-MED ONE Stop: 07/14/18 06:54 Last Admin: 07/14/18 09:05 Dose: 20 ml Ropivacaine 48 ml/Dexamethasone 8 mg/Epinephrine HCl 0.4 mg/ Sodium Chloride 29.6 ml 0 ml NERVRT ASDIRECTED [facility] Last Admin: 07/14/18 08:57 Dose: 80 syringe Dexamethasone (Dexamethasone) Confirm Administered Dose 4 mg .ROUTE .STK-MED ONE Stop: 07/12/18 08:46 Diphenhydramine HCl (Benadryl) 25 mg IVPUSH Q6H PRN PRN Reason: ITCHING Diphenhydramine HCl (Benadryl) 50 mg IVPUSH Q6H PRN PRN Reason: ITCHING Last Admin: 07/13/18 06:21 Dose: 50 mg Fentanyl (Sublimaze) Confirm Administered Dose 250 mcg .ROUTE .STK-MED ONE Stop: 07/12/18 08:45 Fentanyl (Sublimaze) Confirm Administered Dose 100 mcg .ROUTE .STK-MED ONE Stop: 07/14/18 07:02 Furosemide (Lasix) 20 mg IVPUSH ONETIME ONE Stop: 07/13/18 23:02 Last Admin: 07/13/18 23:19 Dose: 20 mg Furosemide (Lasix) 40 mg IVPUSH NOW ONE Stop: 07/14/18 11:01 Last Admin: 07/14/18 12:17 Dose: 40 mg Glycopyrrolate (Robinul) Confirm Administered Dose 1 mg .ROUTE .STK-MED ONE Stop: 07/12/18 08:46 Hydromorphone HCl (Dilaudid) 0.5 mg IVPUSH Q2H PRN PRN Reason: Pain Hydromorphone HCl (Dilaudid) 1 mg IV Q3H PRN PRN Reason: PAIN Last Admin: 07/15/18 03:22 Dose: 1 mg Lactated Ringer's (Ringers, Lactated) 1,000 mls @ 500 mls/hr IV ASDIRECTED [facility] Last Admin: 07/11/18 20:49 Dose: 500 mls/hr Sodium Chloride (Normal Saline) 100 mls @ 3 mls/sec IV ONETIME ONE Stop: 07/11/18 20:14 Last Admin: 07/11/18 20:30 Dose: 3 mls/sec Ciprofloxacin/Dextrose 400 mg/ (Premix) 200 mls @ 200 mls/hr IV ONETIME ONE Stop: 07/11/18 22:17 Last Admin: 07/11/18 21:45 Dose: 200 mls/hr Metronidazole 500 mg/ Premix 100 mls @ 100 mls/hr IV ONETIME ONE Stop: 07/11/18 22:17 Last Admin: 07/11/18 21:45 Dose: 100 mls/hr Ciprofloxacin/Dextrose 400 mg/ (Premix) 200 mls @ 200 mls/hr IV Q12H [facility] Last Admin: 07/11/18 22:20 Dose: Not Given Lactated Ringer's (Ringers, Lactated) 1,000 mls @ 125 mls/hr IV ASDIRECTED [facility] Last Admin: 07/12/18 05:10 Dose: 125 mls/hr Metronidazole 500 mg/ Premix 100 mls @ 100 mls/hr IV Q8H [facility] Last Admin: 07/11/18 22:20 Dose: Not Given Fentanyl 2,500 mcg/ Sodium (Chloride) 250 mls @ 0 mls/hr EPIDUR TITRATE [facility]; Protocol Last Admin: 07/13/18 09:39 Dose: 12 ml/hr, 12 mls/hr Sodium Chloride (Normal Saline) Confirm Administered Dose 10 mls @ as directed .ROUTE .STK-MED ONE Stop: 07/12/18 12:16 Lactated Ringer's (Ringers, Lactated) Confirm Administered Dose 1,000 mls @ as directed .ROUTE .STK-MED ONE Stop: 07/12/18 12:17 Acetaminophen (Ofirmev) Confirm Administered Dose 100 mls @ as directed IV .STK- MED ONE Stop: 07/12/18 12:18 Ampicillin Sodium/Sulbactam (Sodium 3 gm/ Sodium Chloride) 100 mls @ 200 mls/ hr IV ONETIME ONE Stop: 07/12/18 14:29 Last Admin: 07/12/18 14:59 Dose: 200 mls/hr Dextrose/Lactated Ringer's (Dextrose 5%-Lactated Ringers) 1,000 mls @ 175 mls/ hr IV ASDIRECTED [facility] Last Admin: 07/13/18 06:23 Dose: 175 mls/hr Acetaminophen (Ofirmev) 100 mls @ 400 mls/hr IV Q6H [facility] Stop: 07/13/18 12:14 Last Admin: 07/13/18 05:47 Dose: 400 mls/hr Dextrose/Lactated Ringer's (Dextrose 5%-Lactated Ringers) 1,000 mls @ 100 mls/ hr IV ASDIRECTED [facility] Last Admin: 07/13/18 08:19 Dose: 100 mls/hr Magnesium Sulfate 2 gm/ Premix 50 mls @ 25 mls/hr IV ONETIME ONE Stop: 07/13/18 14:29 Last Admin: 07/13/18 12:26 Dose: 25 mls/hr Dextrose/Lactated Ringer's (Dextrose 5%-Lactated Ringers) 1,000 mls @ 0 mls/hr IV ASDIRECTED [facility] Sodium Chloride (Normal Saline) 1,000 mls @ 25 mls/hr IV ASDIRECTED [facility] Last Admin: 07/14/18 23:52 Dose: 25 mls/hr Dextrose/Lactated Ringer's (Dextrose 5%-Lactated Ringers) 1,000 mls @ 100 mls/ hr IV ASDIRECTED [facility] Ibuprofen (Motrin) 600 mg PO Q6H [facility] Last Admin: 07/15/18 05:42 Dose: Not Given Iopamidol (Isovue-300 (61%)) 150 ml IV . DIRECTED [facility] Last Admin: 07/11/18 20:31 Dose: 150 ml Ketamine HCl (Ketalar) 32 mg IV ASDIRECTED [facility] Lactobacillus Rhamnosus (Culturelle) 1 cap PO BID [facility] Last Admin: 07/14/18 20:41 Dose: Not Given Lidocaine/Epinephrine (Xylocaine 1% With Epinephrine 1:100,000) Confirm Administered Dose 50 ml .ROUTE .STK-MED ONE Stop: 07/14/18 06:46 Last Admin: 07/14/18 09:05 Dose: 20 ml Meropenem (Merrem) Confirm Administered Dose 500 mg .ROUTE .STK-MED ONE Stop: 07/12/18 10:42 Last Admin: 07/12/18 13:59 Dose: 1,000 mg Meropenem (Merrem) Confirm Administered Dose 500 mg .ROUTE .STK-MED ONE Stop: 07/12/18 13:03 Meropenem (Merrem) Confirm Administered Dose 500 mg .ROUTE .STK-MED ONE Stop: 07/14/18 06:46 Midazolam HCl (Versed 1 Mg/Ml) Confirm Administered Dose 2 mg .ROUTE .STK-MED ONE Stop: 07/14/18 07:02 Naloxone HCl (Narcan) 0.1 mg IVPUSH Q5M PRN PRN Reason: RESP RATE LESS THAN 6/MINUTE Naloxone HCl (Narcan) 0.4 mg IV ASDIRECTED PRN PRN Reason: ITCHING Neostigmine Methylsulfate (Neostigmine) Confirm Administered Dose 5 mg .ROUTE .STK-MED ONE Stop: 07/12/18 08:46 Verify Scop Patch 0 each TOP BID [facility] Last Admin: 07/12/18 16:15 Dose: Not Given Ondansetron HCl (Zofran) Confirm Administered Dose 4 mg .ROUTE .STK-MED ONE Stop: 07/12/18 08:46 Pantoprazole Sodium (Protonix Iv) 40 mg IVPUSH Q24H [facility] Last Admin: 07/11/18 22:52 Dose: 40 mg Propofol (Diprivan 20 Ml) Confirm Administered Dose 200 mg .ROUTE .STK-MED ONE Stop: 07/12/18 08:46 Propofol (Diprivan 20 Ml) Confirm Administered Dose 200 mg .ROUTE .STK-MED ONE Stop: 07/14/18 07:02 Rocuronium [place] (Zemuron) Confirm Administered Dose 50 mg .ROUTE .STK-MED ONE Stop: 07/12/18 08:46 Rocuronium [place] (Zemuron) Confirm Administered Dose 50 mg .ROUTE .STK-MED ONE Stop: 07/12/18 13:03 Scopolamine (Transderm-Scop) Confirm Administered Dose 1.5 mg .ROUTE .STK-MED ONE Stop: 07/12/18 12:17 Senna/Docusate Sodium (Senna Plus) 2 tab PO BID [facility] Last Admin: 07/14/18 21:01 Dose: Not Given Succinylcholine Chloride (Quelicin) Confirm Administered Dose 200 mg .ROUTE .STK -MED ONE Stop: 07/12/18 08:46 Tamsulosin HCl (Flomax) 0.4 mg PO BEDTIME [facility] Last Admin: 07/14/18 20:42 Dose: Not Given Tramadol HCl (Ultram) 50 mg PO Q6H [facility] Last Admin: 07/15/18 03:21 Dose: Not Given - Exam Quality Assessment: No: Supplemental Oxygen General: Alert, Oriented, Cooperative, No Acute Distress Lungs: Clear to Auscultation, Normal Respiratory Effort Cardiovascular: Regular Rate, Regular Rhythm GI/Abdominal Exam: Soft, No Distention, Abnormal Bowel Sounds (slightly tympanic ) Extremities: No Pedal Edema. No: Increased Warmth Psy/Mental Status: Alert, Normal Affect - Problem List Review Problem List Initiated/Reviewed/Updated: Yes - My Orders Last 24 Hours: My Active Orders 07/14/18 17:11 NG [Nasogastric Orogastric Tube Insertion] [OM.PC] Routine 07/14/18 17:12 NG [Gastrointestinal Tube Mgmt] [RC] Q12H 07/15/18 12:00 Dextrose 5%-Lactated Ringers 1,000 ml IV ASDIRECTED Potassium Chloride 20 MEQ,Lidocaine 1% 2 ML IN 100ML NS @ 50 MLS/HR Potassium Chloride 20 meq Lidocaine 1% [Xylocaine 1%] 2 ml Sodium Chloride 0.9% [Normal Saline] 100 ml IV Q2H 07/15/18 Breakfast NPO Now [Nothing per Oral Now Diet] [DIET] 07/16/18 05:00 BASIC METABOLIC PANEL,BMP [CHEM] Timed MAGNESIUM [CHEM] Timed - Plan Plan:: ASSESSMENT AND PLAN COMPLICATED DIVERTICULITIS WITH ABSCESS - surgical intervention completed 06/11 with sigmoid colon resection. Tolerating antibiotics. Cultures negative so far. Pain is well-controlled. Persistent ileus on x-ray but he did have a bowel movement later in the morning and hopefully is turning the corner. -Minimize IV fluids with increased weight and developing edema -Pain and nausea medication as needed -IV ciprofloxacin and metronidazole -Additional postoperative cares per the surgical team Hypoxia - he is now off supplemental oxygen with diuresis yesterday. -Hold on diuresis today and less weight rises or he becomes hypoxic MAINTENANCE ISSUES -DVT prophylaxis; SCUDS -GI prophylaxis; Protonix 40 mg IV daily -Mares catheter; not indicated -Nutrition; nothing by mouth DISPOSITION - anticipate discharge to home after the hospital stay. Vincent Kowalski M.D.
[2018-07-15] MEDS: Potassium Chloride 20 MEQ, Lidocaine 1% 2 ML in Sodium Chloride 0.9% 100 ML IV SCH ×2 (13:35→16:03)
--- NOTE | 2018-07-15 16:18 | PN ---
DATE OF SERVICE: 07/15/2018 SUBJECTIVE: Mike had an increased amount of nausea and vomiting with bloating last evening or yesterday and NG was placed. He continues to have the same symptoms. NG was not in place and it was advanced further where it was in the stomach. He did feel better once the NG was working. He reports pain is controlled if he takes the IV pain medication and he has been eating it every 2 hours. REVIEW OF SYSTEMS: Remainder of review of systems negative for any pertinent positives and negatives. OBJECTIVE: GENERAL: Mike Long is a 58-year-old male. He currently is not feeling well. VITAL SIGNS: TPR is 98.8, 92, 16, and blood pressure is 126/75. HEENT: Negative. NECK: Supple. HEART: Regular rate and rhythm. LUNGS: Clear. ABDOMEN: Distended, tender. Dressings dry and intact. Abdominal binder is on. EXTREMITIES: Without peripheral edema. ASSESSMENT: 1. Postop ileus. 2. Delayed primary closure on 07/14/2018. Exploratory laparotomy with: 1. Rectosigmoid resection with coloproctostomy. 2. Drainage of pericolonic abscess. 3. Repair of incarcerated umbilical hernia. 4. Mobilization of omentum for perforated sigmoid, colon diverticulitis with pericolonic abscess, incarcerated umbilical hernia. Date of surgery 07/12/2018. Surgeon, Mike Arthur MD. PLAN: 1. Check portable chest x-ray. Advance NG into the stomach. This was already done. 2. D5LR at 100 mL per hour. 3. Dulcolax suppositories b.i.d. 4. Abdominal x-rays flat and upright at 0400, starting tomorrow series were ordered x7. 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 6. Discontinue oral medications. 7. Good pulmonary toilet, we will evaluate p.r.n. or in a.m. Ema Mac PA-C /[id number]
[2018-07-15] MEDS: Pantoprazole 40 MG Vial IVPUSH SCH (21:27)
[2018-07-16] MEDS: Metoclopramide 10 MG/2 ML SDV IVPUSH SCH ×5 (00:38→23:58)
[2018-07-16] MEDS: Dextrose 5%-Lactated Ringers 1,000 ML IV SCH (00:46)
[2018-07-16] MEDS: Ampicillin/Sulbactam Na 3 GM in Sodium Chloride 0.9% 100 ML IV SCH ×4 (03:12→21:26)
[2018-07-16] MEDS: metroNIDAZOLE/Normal Saline 500 MG in Premix Bag 1 BAG IV SCH ×3 (05:14→21:28)
--- NOTE | 2018-07-16 05:32 | CRLCR ---
Indication: Ileus follow-up Technique: Abdomen 2 view, 4 films. Comparison: Abdomen 07/15/2018 Findings: The patient is status post pelvic surgery with 2 drains overlying the pelvis as well as skin estrellita. An enteric tube is present at the proximal stomach. Borderline diameter loops of small bowel as well as mild colonic distension is re-demonstrated to the level of the splenic flexure. No abnormal calcifications. Impression: Mild colonic distension, no significant interval change compared to the study of 1 day prior. Dictated by Mike Crockett MD @ Jul 16 2018 5:28AM Signed by Dr. Mike Crockett @ Jul 16 2018 5:31AM
[2018-07-16] MEDS: Ciprofloxacin in D5W 400 MG in Premix Bag 1 BAG IV SCH ×4 (08:11→21:27)
[2018-07-16] MEDS: Bisacodyl 10 MG Supp RECTAL SCH ×2 (08:13→22:38)
[2018-07-16] MEDS: VERIFY SCOP PATCH TOP SCH (09:32)
[2018-07-16] MEDS: Docusate Sodium 100 MG Cap PO SCH ×2 (09:33→21:26)
[2018-07-16] MEDS: Potassium Chloride 20 MEQ, Lidocaine 1% 2 ML in Sodium Chloride 0.9% 100 ML IV SCH ×2 (10:06→12:06)
--- NOTE | 2018-07-16 11:46 | PN ---
DATE OF SERVICE: 07/16/2018 SUBJECTIVE: Mike has had 2 bowel movements. His pain has been controlled. He has had less nausea. Oral intake, ice chips. MAULIK drains have put out 35 and 75 of a light pink drainage respectively. NG put out 775 mL in the past 24 hours. REVIEW OF SYSTEMS: Remainder of review of systems negative for any pertinent positives or negatives. He has had 2 bowel movements. OBJECTIVE: GENERAL: Mike Long is a 58-year-old male. He is alert and orientated. NG in place. VITAL SIGNS: TPR 95.4, 62, 18, blood pressure 132/77. HEENT: Negative. NECK: Supple. HEART: Regular rate and rhythm. LUNGS: Clear. ABDOMEN: Less distended. Minimally tender. Abdominal binder is on. EXTREMITIES: Without peripheral edema. ASSESSMENT: 1. Postop ileus. 2. Delayed primary closure on 07/14/2018. 3. Exploratory laparotomy with rectosigmoid colon with proctostomy, drainage of pericolonic abscess, repair of incarcerated umbilical hernia, mobilization of omentum for perforated sigmoid colon, diverticulitis with pericolonic abscess, and incarcerated umbilical hernia. Date of surgery 07/12/2018. Surgeon, Mike Arthur MD. PLAN: 1. KCl 40 mEq IV today. 2. Check CBC, CMP, mag, and phos in a.m. 3. Discontinue NG. 4. Colace 100 mg b.i.d. orally. 5. Good pulmonary toilet. 6. We will evaluate p.r.n. or in a.m. Ema Mac PA-C /[id number]
--- NOTE | 2018-07-16 13:13 | PCM.PN ---
- General Info Date of Service: 07/16/18 Subjective Update: There were no acute events overnight. He had a bowel movement yesterday and another small one overnight. His NG tube has been removed. Still has some mild edema of both arms. No complaints of shortness of breath. No fevers. He has been up and walking around well. Functional Status: Reports: Pain Controlled - Review of Systems General: Denies: Fever Gastrointestinal: Reports: Flatus. Denies: Abdominal Pain - Patient Data Vitals - Most Recent: Last Vital Signs Temp 35.8 C 07/16/18 10:37 Pulse 68 07/16/18 10:37 Resp 18 07/16/18 10:37 BP 130/84 07/16/18 10:37 Pulse Ox 95 07/16/18 12:46 Weight - Most Recent: 104.4 kg I&O - Last 24 Hours: Intake & Output 07/15/18 07/16/18 07/16/18 22:59 06:59 14:59 Intake Total 1809 600 Output Total 805 1360 560 Balance 1004 -760 -560 Lab Results Last 24 Hours: Laboratory Results - last 24 hr 07/16/18 Range/Units 04:10 Sodium 135 L (140-148) mmol/L Potassium 3.6 (3.6-5.2) mmol/L Chloride 99 L (100-108) mmol/L Carbon Dioxide 28 (21-32) mmol/L Anion Gap 11.6 (5.0-14.0) mmol/L BUN 17 (7-18) mg/dL Creatinine 1.1 (0.8-1.3) mg/dL Est Cr Clr Drug Dosing 65.69 mL/min Estimated GFR (MDRD) > 60 (>60) Glucose 133 H (74-106) mg/dL Calcium 8.7 (8.5-10.1) mg/dL Magnesium 1.9 (1.8-2.4) mg/dL Med Orders - Current: Current Medications Bisacodyl (Dulcolax) 10 mg RECTAL BID [facility] Last Admin: 07/16/18 08:13 Dose: 10 mg Docusate Sodium (Colace) 100 mg PO BID [facility] Last Admin: 07/16/18 09:33 Dose: 100 mg Hydromorphone HCl (Dilaudid Material Crew Supervisor 15 Mg In Ns 30 Ml) 0 mg IV ASDIRECTED PRN; Protocol 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 Last Admin: 07/15/18 08:32 Dose: 15 mg Hydroxyzine HCl (Vistaril) 100 mg IM Q4H PRN PRN Reason: PAIN Ciprofloxacin/Dextrose 400 mg/ (Premix) 200 mls @ 200 mls/hr IV Q12H [facility] Last Admin: 07/16/18 08:11 Dose: 200 mls/hr Metronidazole 500 mg/ Premix 100 mls @ 100 mls/hr IV Q8H [facility] Last Admin: 07/16/18 05:14 Dose: 100 mls/hr Ampicillin Sodium/Sulbactam (Sodium 3 gm/ Sodium Chloride) 100 mls @ 200 mls/ hr IV Q6H [facility] Last Admin: 07/16/18 09:27 Dose: 200 mls/hr Dextrose/Lactated Ringer's (Dextrose 5%-Lactated Ringers) 1,000 mls @ 50 mls/ hr IV ASDIRECTED [facility] Last Admin: 07/16/18 00:46 Dose: 50 mls/hr Potassium Chloride 20 meq/Lidocaine HCl 2 ml/ Sodium Chloride 112 mls @ 56 mls/ hr IV Q2H [facility] Stop: 07/16/18 13:29 Last Admin: 07/16/18 12:06 Dose: 56 mls/hr Metoclopramide HCl (Reglan) 10 mg IVPUSH Q6H [facility] Last Admin: 07/16/18 12:19 Dose: 10 mg Naloxone HCl (Narcan) 0.1 mg IV ASDIRECTED PRN PRN Reason: decreased respiratory rate Verify Scop Patch 0 each TOP DAILY [facility] Last Admin: 07/16/18 09:32 Dose: Not Given Ondansetron HCl (Zofran) 4 mg IV Q4H PRN PRN Reason: Nausea/Vomiting Last Admin: 07/15/18 08:39 Dose: 4 mg Pantoprazole Sodium (Protonix Iv) 40 mg IVPUSH Q24H [facility] Last Admin: 07/15/18 21:27 Dose: 40 mg Scopolamine (Transderm-Scop) 1.5 mg TRDERM Q72H [facility] Last Admin: 07/15/18 08:42 Dose: 1.5 mg Sodium Chloride (Saline Flush) 10 ml FLUSH ASDIRECTED PRN PRN Reason: Keep Vein Open Discontinued Medications Acetaminophen (Tylenol Extra Strength) 1,000 mg PO ONETIME ONE Stop: 07/11/18 19:09 Last Admin: 07/11/18 20:45 Dose: 1,000 mg Acetaminophen (Tylenol) 650 mg PO Q4H PRN PRN Reason: Pain (Mild 1-3)/fever Last Admin: 07/12/18 05:05 Dose: 650 mg Alvimopan (Entereg) 12 mg PO BID [facility] Stop: 07/19/18 09:01 Last Admin: 07/14/18 20:42 Dose: Not Given Bisacodyl (Dulcolax) 10 mg PO BID [facility] Last Admin: 07/14/18 20:42 Dose: Not Given Bupivacaine HCl (Marcaine 0.5%) Confirm Administered Dose 50 ml .ROUTE .STK-MED ONE Stop: 07/14/18 06:54 Last Admin: 07/14/18 09:05 Dose: 20 ml Ropivacaine 48 ml/Dexamethasone 8 mg/Epinephrine HCl 0.4 mg/ Sodium Chloride 29.6 ml 0 ml NERVRT ASDIRECTED [facility] Last Admin: 07/14/18 08:57 Dose: 80 syringe Dexamethasone (Dexamethasone) Confirm Administered Dose 4 mg .ROUTE .STK-MED ONE Stop: 07/12/18 08:46 Diphenhydramine HCl (Benadryl) 25 mg IVPUSH Q6H PRN PRN Reason: ITCHING Diphenhydramine HCl (Benadryl) 50 mg IVPUSH Q6H PRN PRN Reason: ITCHING Last Admin: 07/13/18 06:21 Dose: 50 mg Fentanyl (Sublimaze) Confirm Administered Dose 250 mcg .ROUTE .STK-MED ONE Stop: 07/12/18 08:45 Fentanyl (Sublimaze) Confirm Administered Dose 100 mcg .ROUTE .STK-MED ONE Stop: 07/14/18 07:02 Furosemide (Lasix) 20 mg IVPUSH ONETIME ONE Stop: 07/13/18 23:02 Last Admin: 07/13/18 23:19 Dose: 20 mg Furosemide (Lasix) 40 mg IVPUSH NOW ONE Stop: 07/14/18 11:01 Last Admin: 07/14/18 12:17 Dose: 40 mg Glycopyrrolate (Robinul) Confirm Administered Dose 1 mg .ROUTE .STK-MED ONE Stop: 07/12/18 08:46 Hydromorphone HCl (Dilaudid) 0.5 mg IVPUSH Q2H PRN PRN Reason: Pain Hydromorphone HCl (Dilaudid) 1 mg IV Q3H PRN PRN Reason: PAIN Last Admin: 07/15/18 03:22 Dose: 1 mg Lactated Ringer's (Ringers, Lactated) 1,000 mls @ 500 mls/hr IV ASDIRECTED [facility] Last Admin: 07/11/18 20:49 Dose: 500 mls/hr Sodium Chloride (Normal Saline) 100 mls @ 3 mls/sec IV ONETIME ONE Stop: 07/11/18 20:14 Last Admin: 07/11/18 20:30 Dose: 3 mls/sec Ciprofloxacin/Dextrose 400 mg/ (Premix) 200 mls @ 200 mls/hr IV ONETIME ONE Stop: 07/11/18 22:17 Last Admin: 07/11/18 21:45 Dose: 200 mls/hr Metronidazole 500 mg/ Premix 100 mls @ 100 mls/hr IV ONETIME ONE Stop: 07/11/18 22:17 Last Admin: 07/11/18 21:45 Dose: 100 mls/hr Ciprofloxacin/Dextrose 400 mg/ (Premix) 200 mls @ 200 mls/hr IV Q12H [facility] Last Admin: 07/11/18 22:20 Dose: Not Given Lactated Ringer's (Ringers, Lactated) 1,000 mls @ 125 mls/hr IV ASDIRECTED [facility] Last Admin: 07/12/18 05:10 Dose: 125 mls/hr Metronidazole 500 mg/ Premix 100 mls @ 100 mls/hr IV Q8H [facility] Last Admin: 07/11/18 22:20 Dose: Not Given Fentanyl 2,500 mcg/ Sodium (Chloride) 250 mls @ 0 mls/hr EPIDUR TITRATE [facility]; Protocol Last Admin: 07/13/18 09:39 Dose: 12 ml/hr, 12 mls/hr Sodium Chloride (Normal Saline) Confirm Administered Dose 10 mls @ as directed .ROUTE .STK-MED ONE Stop: 07/12/18 12:16 Lactated Ringer's (Ringers, Lactated) Confirm Administered Dose 1,000 mls @ as directed .ROUTE .STK-MED ONE Stop: 07/12/18 12:17 Acetaminophen (Ofirmev) Confirm Administered Dose 100 mls @ as directed IV .STK- MED ONE Stop: 07/12/18 12:18 Ampicillin Sodium/Sulbactam (Sodium 3 gm/ Sodium Chloride) 100 mls @ 200 mls/ hr IV ONETIME ONE Stop: 07/12/18 14:29 Last Admin: 07/12/18 14:59 Dose: 200 mls/hr Dextrose/Lactated Ringer's (Dextrose 5%-Lactated Ringers) 1,000 mls @ 175 mls/ hr IV ASDIRECTED [facility] Last Admin: 07/13/18 06:23 Dose: 175 mls/hr Acetaminophen (Ofirmev) 100 mls @ 400 mls/hr IV Q6H [facility] Stop: 07/13/18 12:14 Last Admin: 07/13/18 05:47 Dose: 400 mls/hr Dextrose/Lactated Ringer's (Dextrose 5%-Lactated Ringers) 1,000 mls @ 100 mls/ hr IV ASDIRECTED [facility] Last Admin: 07/13/18 08:19 Dose: 100 mls/hr Magnesium Sulfate 2 gm/ Premix 50 mls @ 25 mls/hr IV ONETIME ONE Stop: 07/13/18 14:29 Last Admin: 07/13/18 12:26 Dose: 25 mls/hr Dextrose/Lactated Ringer's (Dextrose 5%-Lactated Ringers) 1,000 mls @ 0 mls/hr IV ASDIRECTED [facility] Sodium Chloride (Normal Saline) 1,000 mls @ 25 mls/hr IV ASDIRECTED [facility] Last Admin: 07/14/18 23:52 Dose: 25 mls/hr Dextrose/Lactated Ringer's (Dextrose 5%-Lactated Ringers) 1,000 mls @ 100 mls/ hr IV ASDIRECTED [facility] Potassium Chloride 20 meq/Lidocaine HCl 2 ml/ Sodium Chloride 112 mls @ 56 mls/ hr IV Q2H [facility] Stop: 07/15/18 16:59 Last Admin: 07/15/18 16:03 Dose: 56 mls/hr Ibuprofen (Motrin) 600 mg PO Q6H [facility] Last Admin: 07/15/18 05:42 Dose: Not Given Iopamidol (Isovue-300 (61%)) 150 ml IV . DIRECTED [facility] Last Admin: 07/11/18 20:31 Dose: 150 ml Ketamine HCl (Ketalar) 32 mg IV ASDIRECTED KRISTIN Lactobacillus Rhamnosus (Culturelle) 1 cap PO BID [facility] Last Admin: 07/14/18 20:41 Dose: Not Given Lidocaine/Epinephrine (Xylocaine 1% With Epinephrine 1:100,000) Confirm Administered Dose 50 ml .ROUTE .STK-MED ONE Stop: 07/14/18 06:46 Last Admin: 07/14/18 09:05 Dose: 20 ml Meropenem (Merrem) Confirm Administered Dose 500 mg .ROUTE .STK-MED ONE Stop: 07/12/18 10:42 Last Admin: 07/12/18 13:59 Dose: 1,000 mg Meropenem (Merrem) Confirm Administered Dose 500 mg .ROUTE .STK-MED ONE Stop: 07/12/18 13:03 Meropenem (Merrem) Confirm Administered Dose 500 mg .ROUTE .STK-MED ONE Stop: 07/14/18 06:46 Meropenem (Merrem) 500 mg IRR .STK-MED ONE Stop: 07/14/18 09:01 Last Admin: 07/14/18 09:00 Dose: 500 mg Midazolam HCl (Versed 1 Mg/Ml) Confirm Administered Dose 2 mg .ROUTE .STK-MED ONE Stop: 07/14/18 07:02 Naloxone HCl (Narcan) 0.1 mg IVPUSH Q5M PRN PRN Reason: RESP RATE LESS THAN 6/MINUTE Naloxone HCl (Narcan) 0.4 mg IV ASDIRECTED PRN PRN Reason: ITCHING Neostigmine Methylsulfate (Neostigmine) Confirm Administered Dose 5 mg .ROUTE .STK-MED ONE Stop: 07/12/18 08:46 Verify Scop Patch 0 each TOP BID [facility] Last Admin: 07/12/18 16:15 Dose: Not Given Ondansetron HCl (Zofran) Confirm Administered Dose 4 mg .ROUTE .STK-MED ONE Stop: 07/12/18 08:46 Pantoprazole Sodium (Protonix Iv) 40 mg IVPUSH Q24H [facility] Last Admin: 07/11/18 22:52 Dose: 40 mg Propofol (Diprivan 20 Ml) Confirm Administered Dose 200 mg .ROUTE .STK-MED ONE Stop: 07/12/18 08:46 Propofol (Diprivan 20 Ml) Confirm Administered Dose 200 mg .ROUTE .STK-MED ONE Stop: 07/14/18 07:02 Rocuronium [place] (Zemuron) Confirm Administered Dose 50 mg .ROUTE .STK-MED ONE Stop: 07/12/18 08:46 Rocuronium [place] (Zemuron) Confirm Administered Dose 50 mg .ROUTE .STK-MED ONE Stop: 07/12/18 13:03 Scopolamine (Transderm-Scop) Confirm Administered Dose 1.5 mg .ROUTE .STK-MED ONE Stop: 07/12/18 12:17 Senna/Docusate Sodium (Senna Plus) 2 tab PO BID [facility] Last Admin: 07/14/18 21:01 Dose: Not Given Succinylcholine Chloride (Quelicin) Confirm Administered Dose 200 mg .ROUTE .STK -MED ONE Stop: 07/12/18 08:46 Tamsulosin HCl (Flomax) 0.4 mg PO BEDTIME [facility] Last Admin: 07/14/18 20:42 Dose: Not Given Tramadol HCl (Ultram) 50 mg PO Q6H [facility] Last Admin: 07/15/18 03:21 Dose: Not Given - Exam Quality Assessment: No: Supplemental Oxygen General: Alert, Oriented, Cooperative, No Acute Distress Lungs: Clear to Auscultation, Normal Respiratory Effort Cardiovascular: Regular Rate, Regular Rhythm GI/Abdominal Exam: Soft, No Distention Extremities: No Pedal Edema Psy/Mental Status: Alert, Normal Affect - Problem List Review Problem List Initiated/Reviewed/Updated: Yes - Plan Plan:: ASSESSMENT AND PLAN COMPLICATED DIVERTICULITIS WITH ABSCESS - surgical intervention completed / with sigmoid colon resection. Tolerating antibiotics. Cultures negative so far. Pain is well-controlled. Ileus seems to be resolving. -Minimize IV fluids with increased weight and developing edema -Pain and nausea medication as needed -IV ciprofloxacin and metronidazole -Additional postoperative cares per the surgical team Hypoxia - he is now off supplemental oxygen with diuresis yesterday. -Hold on diuresis today unless weight rises or he becomes hypoxic MAINTENANCE ISSUES -DVT prophylaxis; SCUDS -GI prophylaxis; PPI -Mares catheter; not indicated -Nutrition; nothing by mouth DISPOSITION - anticipate discharge to home after the hospital stay. Vincent Kowalski M.D.
[2018-07-16] MEDS: Pantoprazole 40 MG Vial IVPUSH SCH (21:25)
[2018-07-17] MEDS: Dextrose 5%-Lactated Ringers 1,000 ML IV SCH (02:58)
[2018-07-17] MEDS: Ampicillin/Sulbactam Na 3 GM in Sodium Chloride 0.9% 100 ML IV SCH ×4 (02:59→21:43)
[2018-07-17] MEDS: Metoclopramide 10 MG/2 ML SDV IVPUSH SCH ×4 (05:30→23:49)
[2018-07-17] MEDS: metroNIDAZOLE/Normal Saline 500 MG in Premix Bag 1 BAG IV SCH (05:31)
--- NOTE | 2018-07-17 06:21 | CRLCR ---
Indication: Postoperative ileus Technique: Abdomen 2 view, 4 films. Comparison: Abdominal series 07/16/2018 Findings: The patient is status post pelvic surgery with ventral skin estrellita as well as 2 drains within the pelvis. Mild colonic distension is re- demonstrated as well as multiple loops of small bowel which are upper normal to borderline caliber. Impression: Mild colonic distention with upper normal to borderline dilated loops of small bowel. Compared to the prior examination, caliber of the bowel is similar to perhaps slightly decreased. Dictated by Mike Crockett MD @ Jul 17 2018 6:18AM Signed by Dr. Mike Crockett @ Jul 17 2018 6:20AM
[2018-07-17] MEDS: VERIFY SCOP PATCH TOP SCH (08:24)
[2018-07-17] MEDS: Bisacodyl 10 MG Supp RECTAL SCH (09:37)
[2018-07-17] MEDS: Docusate Sodium 100 MG Cap PO SCH ×2 (09:38→20:30)
[2018-07-17] MEDS: Ciprofloxacin in D5W 400 MG in Premix Bag 1 BAG IV SCH ×2 (11:32)
[2018-07-17] MEDS ORDERED: HYDROmorphone 2 MG Tab PO PRN (13:31)
[2018-07-17] MEDS: Acetaminophen 500 MG Tab PO SCH ×2 (14:42→20:30)
[2018-07-17] MEDS: Lactobacillus Rhamnosus GG (Probiotic) Cap PO SCH (20:30)
[2018-07-17] MEDS ORDERED: Benzocaine/Cetylpyridinium/Menthol Lozenge MUCMEM PRN (21:45)
[2018-07-17] MEDS: Pantoprazole 40 MG Vial IVPUSH SCH (21:48)
[2018-07-18] MEDS: Dextrose 5%-Lactated Ringers 1,000 ML IV SCH (01:11)
[2018-07-18] MEDS: Acetaminophen 500 MG Tab PO SCH ×2 (01:11→07:29)
[2018-07-18] MEDS: Ampicillin/Sulbactam Na 3 GM in Sodium Chloride 0.9% 100 ML IV SCH ×2 (02:49→08:20)
[2018-07-18] MEDS: Metoclopramide 10 MG/2 ML SDV IVPUSH SCH (05:52)
--- NOTE | 2018-07-18 06:19 | CRLCR ---
Indication: Postoperative ileus Technique: Abdomen 2 view. Comparison: Abdominal film 07/17/2018 Findings: The patient is status post pelvic surgery with 2 drains as well as skin estrellita. Again note is made of some prominence of the colon as well as upper normal diameter loops of small bowel. Impression: Mild colonic prominence and upper normal diameter loops of small bowel consistent with the history of a postoperative ileus showing mild continued improvement compared to the study of 1 day prior. Dictated by Mike Crockett MD @ Jul 18 2018 6:16AM Signed by Dr. Mike Crockett @ Jul 18 2018 6:18AM
[2018-07-18] MEDS: Docusate Sodium 100 MG Cap PO SCH (08:18)
[2018-07-18] MEDS: Lactobacillus Rhamnosus GG (Probiotic) Cap PO SCH (08:18)
[2018-07-18] MEDS: VERIFY SCOP PATCH TOP SCH (08:19)
[2018-07-18] MEDS: Scopolamine 1.5 MG Transdermal Patch TRDERM SCH (08:20)
[2018-07-18 08:30] VITALS: BP 159/98
--- NOTE | 2018-07-18 12:07 | DISCH ---
FINAL DIAGNOSES: 1. Perforated sigmoid colon diverticulitis with pericolonic abscess. 2. Incarcerated umbilical hernia. 3. History of gastroesophageal reflux disease. 4. History of hyperlipidemia. OPERATIVE PROCEDURES: 1. This was done on 07/11, exploratory laparotomy with: a. Rectosigmoid resection with coloproctostomy. b. Drainage of pericolonic abscess. c. Repair of incarcerated umbilical hernia. d. Mobilization of omentum into pelvis to limit adhesion formation. 2. On 07/14, delayed primary closure of open abdominal incision. SUMMARY: This is a 58-year-old male presenting with acute diverticulitis with pericolonic abscess. This was not amenable to percutaneous drainage as it was more or less sandwiched between the urinary bladder and the sigmoid colon. This is in a position that likely, if untreated, would result in a colovesical fistula. After initial admission, the patient underwent exploratory laparotomy and rectosigmoid resection with coloproctostomy and drainage of the abscess. He also had, incidentally, finding of an incarcerated umbilical hernia, and the omentum was mobilized in the pelvis to limit recurrent adhesion formation between the pelvic area and the adjacent viscera. The patient's skin and subcutaneous tissue were left open on initial procedure, and he underwent a delayed primary closure on postop day 2. The patient had developed somewhat of a protracted ileus requiring nasogastric suctioning for about a day and half. Now, he is moving his bowels, eating satisfactorily. He is still requiring only Tylenol for pain. He will be sent home with continuation of his home medications plus Tylenol 1000 mg p.o. q.i.d. p.r.n. pain, and followup will be with Ema Mac on 07/23/2018, in [facility].
--- NOTE | 2018-07-18 14:13 | PN ---
DATE OF SERVICE: 07/17/2018 The patient has been afebrile with stable vital signs. He continues to move his bowels, and abdominal x-ray looks better with much less air generalized in both the small and large bowel. Plan will be to begin full liquid diet. 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 He may be ready for discharge home tomorrow. Mike Arthur MD /[id number]
== END 2018-07-18 09:30 | disposition home or self-care (01) | DRG 330 ==
LOC: JP.ED 18:42 → JP.MS 21:33
PROVIDERS: ADMIT Hospitalist; ATTEND Internal Medicine
PROC: 0DTN0ZZ Resection of Sigmoid Colon, Open Approach (ICD-10-PCS; principal; 2018-07-12)
PROC: 0DTP0ZZ Resection of Rectum, Open Approach (ICD-10-PCS; 2018-07-12)
PROC: 0D9W0ZX Drainage of Peritoneum, Open Approach, Diagnostic (ICD-10-PCS; 2018-07-12)
PROC: 0WQF0ZZ Repair Abdominal Wall, Open Approach (ICD-10-PCS; 2018-07-12)
PROC: 0DNU0ZZ Release Omentum, Open Approach (ICD-10-PCS; 2018-07-12)
PROC: 0D1N0ZP Bypass Sigmoid Colon to Rectum, Open Approach (ICD-10-PCS; 2018-07-12)
PROC: 0WQF0ZZ Repair Abdominal Wall, Open Approach (ICD-10-PCS; 2018-07-14)
DX: K57.20 Diverticulitis of large intestine with perforation and abscess without bleeding (principal); K42.0 Umbilical hernia with obstruction, without gangrene; K56.7 Ileus, unspecified; Z48.1 Encounter for planned postprocedural wound closure; E78.00 Pure hypercholesterolemia, unspecified; Z86.010 Personal history of colon polyps; R09.02 Hypoxemia; K21.9 Gastro-esophageal reflux disease without esophagitis
CPT/HCPCS: 36415; 74018; 74019; 74177; 80048; 80053; 81001; 83735; 84100; 85025; 85027; 86140; 87070; 87075; 87205; 88302; 88307; 94762; 99285-25; A9270-GY; C9113; J0131; J0171; J0295; J0330; J0744; J1100; J1170; J1200; J1940; J2001; J2185; J2250; J2405; J2704; J2710; J2765; J2795; J3010; J3475; J3480; J3490; J7030; J7042; J7050; J7120

== ENCOUNTER 2023-09-12 15:14 | Emergency (ER) | payer MEDICARE, BC ==
[2023-09-12] MEDS ORDERED: Ondansetron 4 MG/2 ML SDV IVPUSH PRN (15:36)
[2023-09-12] MEDS ORDERED: Naloxone 0.4 MG/ML SDV IVPUSH PRN (15:36)
[2023-09-12] MEDS ORDERED: HYDROmorphone 0.5 MG/0.5 ML Syringe IVPUSH PRN (15:36)
[2023-09-12 15:46] LABS: INR 1.1; PROTHROMBIN TIME 10.9 sec (9.2-10.6)
[2023-09-12 15:54] LABS: A/G RATIO 1.1 (1.2-2.2); ALANINE AMINOTRANSFERASE,ALT 28 U/L (12-78); ALKALINE PHOSPHATASE 84 U/L (46-116); ANION GAP 10.4 mmol/L (5.0-14.0); ASPARTATE AMNIOTRANSFERASE,AST 24 U/L (15-37); BILIRUBIN TOTAL 1.1 mg/dL (0.2-1.0); BLOOD UREA NITROGEN,BUN 21 mg/dL (7-18); CALCIUM 8.6 mg/dL (8.5-10.1); CARBON DIOXIDE,CO2 27 mmol/L (21-32); CHLORIDE,CL 103 mmol/L (100-108); CREATININE 1.3 mg/dL (0.8-1.3); ESTIMATED GFR 61 mL/min (>60); GLUCOSE RANDOM 279 mg/dL (74-106); POTASSIUM,K 4.2 mmol/L (3.6-5.2); PROTEIN TOTAL,TP 7.6 g/dL (6.4-8.2); SODIUM,NA 140 mmol/L (140-148); TROPONIN I HIGH SENSITIVITY 6.4 pg/mL (<=60.3)
[2023-09-12] MEDS: Sodium Chloride 0.9% 1,000 ML IV ONE (16:32)
[2023-09-12 17:12] VITALS: BP 168/85; PULSE 93
[2023-09-12 19:07] LABS: HEMOGLOBIN 13.7 g/dL (12.9-16.9); WHITE BLOOD CELL COUNT,WBC 11.4 K/uL (3.2-11.0)
[2023-09-12 19:08] LABS: BAND ABSOLUTE MAN 0.11 K/uL; BAND PERCENT MAN 1 % (5-11); EOSINOPHILS ABSOLUTE MAN 0.34 K/uL (0.00-0.40); EOSINOPHILS PERCENT MAN 3 % (2-4); LYMPHOCYTES ABSOLUTE MAN 3.31 K/uL (0.8-3.3); LYMPHOCYTES PERCENT MAN 29 % (24-44); METAMYELOCYTE ABSOLUTE MAN 0.11 K/uL; METAMYELOCYTE PERCENT MAN 1 %; MONOCYTES ABSOLUTE MAN 1.03 K/uL (0.20-0.90); MONOCYTES PERCENT MAN 9 % (2-6); PLATELET COUNT,PLT 294 K/uL (130-375); SEG NEUTROPHILS PERCENT MAN 57 % (36-66)
== END 2023-09-12 18:48 | disposition home or self-care (01) ==
LOC: JP.ED 15:14
DX: S06.0X1A Concussion with loss of consciousness of 30 minutes or less, initial encounter (principal); S20.222A Contusion of left back wall of thorax, initial encounter; S30.811A Abrasion of abdominal wall, initial encounter; E78.00 Pure hypercholesterolemia, unspecified; Z90.49 Acquired absence of other specified parts of digestive tract; W12.XXXA Fall on and from scaffolding, initial encounter
CPT/HCPCS: 36415; 70450; 71250; 72125; 74176; 76377; 80053; 80307; 83605; 84484; 85004; 85018; 85049; 85610; 93005; 93010; 96360; 96361; 99284; 99285; J7030